=== PATIENT | male | born 1935 | race American Indian/Alaskan Native ===

== ENCOUNTER 2018-06-13 20:53 | Inpatient (IN) | payer MEDICARE, MEDICAID ==
[2018-06-13] MEDS ORDERED: Lactated Ringers 1,000 ML IV ONE (21:31)
[2018-06-13 21:43] LABS: ANION GAP 19.8; CHLORIDE,CL 93 mmol/L (101-111); SODIUM,NA 128 mmol/L (135-145)
--- NOTE | 2018-06-13 21:59 | EDM.PDOC ---
ED HPI GENERAL MEDICAL PROBLEM - General Chief Complaint: Fever Stated Complaint: AMBULANCE Time Seen by Provider: 06/13/18 21:15 Source of Information: Reports: Patient, EMS, EMS Notes Reviewed, RN, RN Notes Reviewed History Limitations: Reports: No Limitations - History of Present Illness INITIAL COMMENTS - FREE TEXT/NARRATIVE: Pt to ER with c/o weakness, decreased appetite for the past 4 days. He states he lives at home alone and has not been able to eat much or do much. He states he has had increased frequency in urination, not urinating much in volume. Denies burning with urination. Patient is unsure if he has had a fever. Denies any more cough than usual, as he admits to smoking a pack a day. Patient denies chest pain, SOB, body aches, N/V/D. He states he hasn't had a BM in a few days due to not eating much. Patient denies health problems. Onset: Gradual Onset Date: 06/09/18 - Related Data Allergies Allergy/AdvReac Type Severity Reaction Status Date / Time No Known Allergies Allergy Verified 02/09/18 14:55 Home Meds: Home Meds Aspirin [Halfprin] 81 mg PO DAILY 02/09/18 [History] Past Medical History - Past Health History Medical/Surgical History: Denies Medical/Surgical History HEENT History: Reports: Impaired Vision Cardiovascular History: Reports: CAD Respiratory History: Reports: Other (See Below) Dermatologic History: Reports: Cellulitis - Infectious Disease History Infectious Disease History: Reports: Chicken Pox, Measles, Mumps - Past Surgical History HEENT Surgical History: Reports: Adenoidectomy, Tonsillectomy, Other (See Below) Other HEENT Surgeries/Procedures: corneal transplant left eye Social & Family History - Family History Family Medical History: Noncontributory - Tobacco Use Smoking Status *Q: Current Every Day Smoker Years of Tobacco use: 70 Packs/Tins Daily: 1 Used Tobacco, but Quit: No Second Hand Smoke Exposure: No - Caffeine Use Caffeine Use: Reports: Coffee - Recreational Drug Use Recreational Drug Use: No - Living Situation & Occupation Living situation: Reports: with Family Occupation: Retired ED ROS GENERAL - Review of Systems Review Of Systems: ROS reveals no pertinent complaints other than HPI. ED EXAM, GENERAL - Physical Exam Exam: See Below Exam Limited By: No Limitations General Appearance: Alert, WD/WN, No Apparent Distress Eye Exam: Bilateral Eye: EOMI, Normal Inspection Ears: Normal External Exam, Hearing Grossly Normal Nose: Normal Inspection Throat/Mouth: Normal Oropharynx, Normal Voice, No Airway Compromise, Other ( tongue and mucous membranes extremely dry, white) Head: Atraumatic, Normocephalic Neck: Normal Inspection, Supple, Non-Tender, Full Range of Motion Respiratory/Chest: No Respiratory Distress, No Accessory Muscle Use, Chest Non- Tender, Decreased Breath Sounds, Crackles (bases bilaterally) Cardiovascular: Normal Peripheral Pulses, Regular Rate, Rhythm, No Edema, No Gallop, No JVD, No Murmur, No Rub Peripheral Pulses: 2+: Radial (L), Radial (R) GI/Abdominal: Normal Bowel Sounds, Soft, Non-Tender (Male) Exam: Deferred Rectal (Males) Exam: Deferred Back Exam: Normal Inspection, Decreased Range of Motion Extremities: Normal Inspection, Non-Tender, No Pedal Edema, Normal Capillary Refill, Limited Range of Motion Neurological: Alert, Oriented, CN II-XII Intact, Normal Cognition, Normal Reflexes, No Motor/Sensory Deficits Psychiatric: Normal Affect, Normal Mood Skin Exam: Warm, Dry, Intact, Normal Color, No Rash Lymphatic: No Adenopathy EKG INTERPRETATION EKG Date: 06/13/18 Time: 21:43 Rhythm: NSR Rate (Beats/Min): 75 QRS: RBBB Comparison: NA - No Prior EKG Course - Vital Signs Last Recorded V/S: Last Vital Signs Temp 101.1 F H 06/13/18 20:54 Pulse 6 L 06/13/18 20:54 Resp 16 06/13/18 20:54 BP 145/58 H 06/13/18 20:54 Pulse Ox 93 L 06/13/18 20:54 - Orders/Labs/Meds Orders: Active Orders 24 hr Category Date Time Status EKG Documentation Completion [RC] STAT Care 06/13/18 21:29 Active Chest 1V Frontal [CR] Stat Exams 06/13/18 21:29 Taken CULTURE BLOOD [BC] Stat Lab 06/13/18 21:14 Received CULTURE BLOOD [BC] Stat Lab 06/13/18 21:14 Received CULTURE URINE [RM] Stat Lab 06/13/18 20:45 Received Sodium Chloride 0.9% [Normal Saline] 1,000 ml Med 06/13/18 22:21 Active IV .BOLUS cefTRIAXone [Rocephin] 1,000 mg Med 06/13/18 22:23 Active Sodium Chloride 0.9% [Normal Saline] 100 ml IV ONETIME Blood Culture x2 Reflex Set [OM.PC] Stat Oth 06/13/18 20:58 Ordered Medication Orders Sodium Chloride (Normal Saline) 1,000 mls @ 999 mls/hr IV .BOLUS ONE Stop: 06/13/18 23:21 Ceftriaxone Sodium 1,000 mg/ (Sodium Chloride) 100 mls @ 200 mls/hr IV ONETIME ONE Stop: 06/13/18 22:52 Labs: Laboratory Tests 06/13/18 06/13/18 06/13/18 Range/Units 20:45 21:14 21:14 WBC 19.8 H (5.0-10.0) 10^3/uL RBC 5.20 (4.6-6.2) 10^6/uL Hgb 15.3 (14.0-18.0) g/dL Hct 45.4 (40.0-54.0) % MCV 87.3 (80-100) fL MCH 29.4 (27.0-34.0) pg MCHC 33.7 (33.0-35.0) g/dL Plt Count 156 D (150-450) 10^3/uL Neut % (Auto) 85.8 H (42.2-75.2) % Lymph % (Auto) 4.9 L (20.5-50.1) % [place] % (Auto) 9.0 H (2-8) % Eos % (Auto) 0.1 L (1.0-3.0) % Baso % (Auto) 0.2 (0.0-1.0) % Add Manual Diff Yes Neutrophils % (Manual) 85 H (42-75) % Band Neutrophils % 2 % Lymphocytes % (Manual) 5 L (20-50) % Monocytes % (Manual) 8 (2-8) % Sodium 128 L (135-145) mmol/L Potassium 3.8 (3.6-5.0) mmol/L Chloride 93 L (101-111) mmol/L Carbon Dioxide 19.0 L (21.0-31.0) mmol/L Anion Gap 19.8 BUN 34 H (7-18) mg/dL Creatinine 1.5 H (0.6-1.3) mg/dL Est Cr Clr Drug Dosing 33.08 mL/min Estimated GFR (MDRD) 45 BUN/Creatinine Ratio 22.66 Glucose 124 H (74-105) mg/dL Lactic Acid (0.5-2.2) mmol/L Calcium 8.2 L (8.4-10.2) mg/dl Total Bilirubin 1.8 H (0.2-1.0) mg/dL AST 44 H (10-42) IU/L ALT 46 (10-60) IU/L Alkaline Phosphatase 102 (42-121) IU/L Troponin I < 0.02 (0.00-0.02) ng/ml Total Protein 7.3 (6.7-8.2) g/dl Albumin 3.2 (3.2-5.5) g/dl Globulin 4.1 Albumin/Globulin Ratio 0.78 Urine Color Dark yellow (YELLOW) Urine Appearance Turbid (CLEAR) Urine pH 5.5 (5.0-9.0) Ur Specific [place] 1.015 (1.005-1.030) Urine Protein 30 H (NEGATIVE) Urine Glucose (UA) Negative (NEGATIVE) Urine Ketones Trace H (NEGATIVE) Urine Occult Blood Large H (NEGATIVE) Urine Nitrite Negative (NEGATIVE) Urine Bilirubin Small H (NEGATIVE) Urine Urobilinogen 4.0 H (0.2-1.0) mg/dL Ur Leukocyte Esterase Moderate H (NEGATIVE) Urine RBC 5-10 H /HPF Urine WBC >100 H (0-5/HPF) /HPF Ur Epithelial Cells Few /HPF Urine Bacteria Many H (0-FEW/HPF) /HPF 06/13/18 Range/Units 21:14 WBC (5.0-10.0) 10^3/uL RBC (4.6-6.2) 10^6/uL Hgb (14.0-18.0) g/dL Hct (40.0-54.0) % MCV (80-100) fL MCH (27.0-34.0) pg MCHC (33.0-35.0) g/dL Plt Count (150-450) 10^3/uL Neut % (Auto) (42.2-75.2) % Lymph % (Auto) (20.5-50.1) % Ashley % (Auto) (2-8) % Eos % (Auto) (1.0-3.0) % Baso % (Auto) (0.0-1.0) % Add Manual Diff Neutrophils % (Manual) (42-75) % Band Neutrophils % % Lymphocytes % (Manual) (20-50) % Monocytes % (Manual) (2-8) % Sodium (135-145) mmol/L Potassium (3.6-5.0) mmol/L Chloride (101-111) mmol/L Carbon Dioxide (21.0-31.0) mmol/L Anion Gap BUN (7-18) mg/dL Creatinine (0.6-1.3) mg/dL Est Cr Clr Drug Dosing mL/min Estimated GFR (MDRD) BUN/Creatinine Ratio Glucose (74-105) mg/dL Lactic Acid 1.2 (0.5-2.2) mmol/L Calcium (8.4-10.2) mg/dl Total Bilirubin (0.2-1.0) mg/dL AST (10-42) IU/L ALT (10-60) IU/L Alkaline Phosphatase (42-121) IU/L Troponin I (0.00-0.02) ng/ml Total Protein (6.7-8.2) g/dl Albumin (3.2-5.5) g/dl Globulin Albumin/Globulin Ratio Urine Color (YELLOW) Urine Appearance (CLEAR) Urine pH (5.0-9.0) Ur Specific [place] (1.005-1.030) Urine Protein (NEGATIVE) Urine Glucose (UA) (NEGATIVE) Urine Ketones (NEGATIVE) Urine Occult Blood (NEGATIVE) Urine Nitrite (NEGATIVE) Urine Bilirubin (NEGATIVE) Urine Urobilinogen (0.2-1.0) mg/dL Ur Leukocyte Esterase (NEGATIVE) Urine RBC /HPF Urine WBC (0-5/HPF) /HPF Ur Epithelial Cells /HPF Urine Bacteria (0-FEW/HPF) /HPF Meds: Medications Generic Name Dose Route Start Last Admin Trade Name Freq PRN Reason Stop Dose Admin Sodium Chloride 1,000 mls @ 999 mls/hr 06/13/18 22:21 Normal Saline IV 06/13/18 23:21 .BOLUS ONE Ceftriaxone Sodium 1,000 mg/ 100 mls @ 200 mls/hr 06/13/18 22:23 Sodium Chloride IV 06/13/18 22:52 ONETIME ONE Discontinued Medications Generic Name Dose Route Start Last Admin Trade Name Zenon PRN Reason Stop Dose Admin Lactated Ringer's 1,000 mls @ 999 mls/hr 06/13/18 21:31 06/13/18 22:02 Ringers, Lactated IV 06/13/18 22:31 999 mls/hr .BOLUS ONE Administration - Radiology Interpretation Free Text/Narrative:: Chest xray; See rad report - Re-Assessments/Exams Free Text/Narrative Re-Assessment/Exam: 06/13/18 22:25 Discussed patient case with Dr. Jackson who agreed to accept the patient for admission Departure - Departure Time of Disposition: 22:26 Disposition: Admitted As Inpatient 64 Condition: Poor Clinical Impression: Dehydration UTI (urinary tract infection) Qualifiers: Urinary tract infection type: site unspecified Hematuria presence: with hematuria Qualified Code(s): N39.0 - Urinary tract infection, site not specified ; R31.9 - Hematuria, unspecified - Discharge Information Forms: ED Department Discharge - My Orders Last 24 Hours: My Active Orders 06/13/18 20:45 CULTURE URINE [RM] Stat 06/13/18 20:58 Blood Culture x2 Reflex Set [OM.PC] Stat 06/13/18 21:14 CULTURE BLOOD [BC] Stat CULTURE BLOOD [BC] Stat 06/13/18 21:29 EKG Documentation Completion [RC] STAT Chest 1V Frontal [CR] Stat 06/13/18 22:21 Sodium Chloride 0.9% [Normal Saline] 1,000 ml IV .BOLUS 06/13/18 22:23 cefTRIAXone [Rocephin] 1,000 mg Sodium Chloride 0.9% [Normal Saline] 100 ml IV ONETIME - Assessment/Plan Last 24 Hours: My Active Orders 06/13/18 20:45 CULTURE URINE [RM] Stat 06/13/18 20:58 Blood Culture x2 Reflex Set [OM.PC] Stat 06/13/18 21:14 CULTURE BLOOD [BC] Stat CULTURE BLOOD [BC] Stat 06/13/18 21:29 EKG Documentation Completion [RC] STAT Chest 1V Frontal [CR] Stat 06/13/18 22:21 Sodium Chloride 0.9% [Normal Saline] 1,000 ml IV .BOLUS 06/13/18 22:23 cefTRIAXone [Rocephin] 1,000 mg Sodium Chloride 0.9% [Normal Saline] 100 ml IV ONETIME
[2018-06-13] MEDS ORDERED: Sodium Chloride 0.9% 1,000 ML IV ONE (22:21)
[2018-06-13] MEDS ORDERED: Ibuprofen 400 MG Tab PO PRN (23:25)
[2018-06-13] MEDS ORDERED: Acetaminophen 325 MG Tab PO PRN (23:25)
[2018-06-13] MEDS ORDERED: oxyCODONE 5 MG Tab PO PRN (23:25)
[2018-06-13] MEDS ORDERED: Zolpidem 5 MG Tab PO PRN (23:25)
[2018-06-13] MEDS ORDERED: Ondansetron 4 MG/2 ML SDV IVPUSH PRN (23:25)
--- NOTE | 2018-06-13 23:33 | PCM.HP ---
H&P History of Present Illness - General Date of Service: 06/13/18 Admit Problem/Dx: Admission Diagnosis/Problem Admission Diagnosis/Problem UTI, Urinary tract infectious disease Source of Information: Patient History Limitations: Reports: No Limitations - History of Present Illness Initial Comments - Free Text/Narative: 82-year-old gentleman who lives alone. He is only taking aspirin. He has been feeling very weak, increasingly over the past for 5 days. He was eating very little, drinking little water Denies fever Appear to have urinary frequency. No chest pain, no shortness of breath, no cough Chronic smoker - Related Data Allergies/Adverse Reactions: Allergies Allergy/AdvReac Type Severity Reaction Status Date / Time No Known Allergies Allergy Verified 02/09/18 14:55 Home Medications: Home Meds Aspirin [Halfprin] 81 mg PO DAILY 02/09/18 [History] Past Medical History - Past Health History Medical/Surgical History: Denies Medical/Surgical History HEENT History: Reports: Impaired Vision Cardiovascular History: Reports: CAD Respiratory History: Reports: Other (See Below) Dermatologic History: Reports: Cellulitis - Infectious Disease History Infectious Disease History: Reports: Chicken Pox, Measles, Mumps - Past Surgical History HEENT Surgical History: Reports: Adenoidectomy, Tonsillectomy, Other (See Below) Other HEENT Surgeries/Procedures: corneal transplant left eye Social & Family History - Family History Family Medical History: Noncontributory - Tobacco Use Smoking Status *Q: Current Every Day Smoker Years of Tobacco use: 70 Packs/Tins Daily: 1 Used Tobacco, but Quit: No Second Hand Smoke Exposure: No - Caffeine Use Caffeine Use: Reports: Coffee - Recreational Drug Use Recreational Drug Use: No - Living Situation & Occupation Living situation: Reports: with Family Occupation: Retired H&P Review of Systems - Review of Systems: Review Of Systems: See Below General: Denies: Fever Pulmonary: Denies: Shortness of Breath Cardiovascular: Denies: Chest Pain, Edema Gastrointestinal: Denies: Abdominal Pain Genitourinary: Reports: Urgency. Denies: Burning, Hematuria, Retention Psychiatric: Denies: Confusion Neurological: Reports: Weakness Exam - Exam Exam: See Below - Vital Signs Vital Signs: Last Vital Signs Temp 37.2 C 06/13/18 22:33 Pulse 72 06/13/18 22:33 Resp 16 06/13/18 22:33 BP 136/55 L 02/13/19 22:33 Pulse Ox 98 06/13/18 22:33 Weight: 76.476 kg - Exam General: Alert, Oriented HEENT: Other (Dry mouth) Neck: Supple Lungs: Clear to Auscultation Cardiovascular: Regular Rate, Regular Rhythm GI/Abdominal Exam: Normal Bowel Sounds, Soft, Non-Tender Extremities: No Pedal Edema Skin: Warm, Dry Neurological: Normal Speech Neuro Extensive - Mental Status: Alert, Oriented x3, Normal Mood/Affect, Normal Cognition - Patient Data Lab Results Last 24 hrs: Laboratory Results - last 24 hr 06/13/18 06/13/18 06/13/18 Range/Units 20:45 21:14 21:14 WBC 19.8 H (5.0-10.0) 10^3/uL RBC 5.20 (4.6-6.2) 10^6/uL Hgb 15.3 (14.0-18.0) g/dL Hct 45.4 (40.0-54.0) % MCV 87.3 (80-100) fL MCH 29.4 (27.0-34.0) pg MCHC 33.7 (33.0-35.0) g/dL Plt Count 156 D (150-450) 10^3/uL Neut % (Auto) 85.8 H (42.2-75.2) % Lymph % (Auto) 4.9 L (20.5-50.1) % [place] % (Auto) 9.0 H (2-8) % Eos % (Auto) 0.1 L (1.0-3.0) % Baso % (Auto) 0.2 (0.0-1.0) % Add Manual Diff Yes Neutrophils % (Manual) 85 H (42-75) % Band Neutrophils % 2 % Lymphocytes % (Manual) 5 L (20-50) % Monocytes % (Manual) 8 (2-8) % Sodium 128 L (135-145) mmol/L Potassium 3.8 (3.6-5.0) mmol/L Chloride 93 L (101-111) mmol/L Carbon Dioxide 19.0 L (21.0-31.0) mmol/L Anion Gap 19.8 BUN 34 H (7-18) mg/dL Creatinine 1.5 H (0.6-1.3) mg/dL Est Cr Clr Drug Dosing 33.08 mL/min Estimated GFR (MDRD) 45 BUN/Creatinine Ratio 22.66 Glucose 124 H (74-105) mg/dL Lactic Acid (0.5-2.2) mmol/L Calcium 8.2 L (8.4-10.2) mg/dl Total Bilirubin 1.8 H (0.2-1.0) mg/dL AST 44 H (10-42) IU/L ALT 46 (10-60) IU/L Alkaline Phosphatase 102 (42-121) IU/L Troponin I < 0.02 (0.00-0.02) ng/ml Total Protein 7.3 (6.7-8.2) g/dl Albumin 3.2 (3.2-5.5) g/dl Globulin 4.1 Albumin/Globulin Ratio 0.78 Urine Color Dark yellow (YELLOW) Urine Appearance Turbid (CLEAR) Urine pH 5.5 (5.0-9.0) Ur Specific [place] 1.015 (1.005-1.030) Urine Protein 30 H (NEGATIVE) Urine Glucose (UA) Negative (NEGATIVE) Urine Ketones Trace H (NEGATIVE) Urine Occult Blood Large H (NEGATIVE) Urine Nitrite Negative (NEGATIVE) Urine Bilirubin Small H (NEGATIVE) Urine Urobilinogen 4.0 H (0.2-1.0) mg/dL Ur Leukocyte Esterase Moderate H (NEGATIVE) Urine RBC 5-10 H /HPF Urine WBC >100 H (0-5/HPF) /HPF Ur Epithelial Cells Few /HPF Urine Bacteria Many H (0-FEW/HPF) /HPF 06/13/18 Range/Units 21:14 WBC (5.0-10.0) 10^3/uL RBC (4.6-6.2) 10^6/uL Hgb (14.0-18.0) g/dL Hct (40.0-54.0) % MCV (80-100) fL MCH (27.0-34.0) pg MCHC (33.0-35.0) g/dL Plt Count (150-450) 10^3/uL Neut % (Auto) (42.2-75.2) % Lymph % (Auto) (20.5-50.1) % [place] % (Auto) (2-8) % Eos % (Auto) (1.0-3.0) % Baso % (Auto) (0.0-1.0) % Add Manual Diff Neutrophils % (Manual) (42-75) % Band Neutrophils % % Lymphocytes % (Manual) (20-50) % Monocytes % (Manual) (2-8) % Sodium (135-145) mmol/L Potassium (3.6-5.0) mmol/L Chloride (101-111) mmol/L Carbon Dioxide (21.0-31.0) mmol/L Anion Gap BUN (7-18) mg/dL Creatinine (0.6-1.3) mg/dL Est Cr Clr Drug Dosing mL/min Estimated GFR (MDRD) BUN/Creatinine Ratio Glucose (74-105) mg/dL Lactic Acid 1.2 (0.5-2.2) mmol/L Calcium (8.4-10.2) mg/dl Total Bilirubin (0.2-1.0) mg/dL AST (10-42) IU/L ALT (10-60) IU/L Alkaline Phosphatase (42-121) IU/L Troponin I (0.00-0.02) ng/ml Total Protein (6.7-8.2) g/dl Albumin (3.2-5.5) g/dl Globulin Albumin/Globulin Ratio Urine Color (YELLOW) Urine Appearance (CLEAR) Urine pH (5.0-9.0) Ur Specific [place] (1.005-1.030) Urine Protein (NEGATIVE) Urine Glucose (UA) (NEGATIVE) Urine Ketones (NEGATIVE) Urine Occult Blood (NEGATIVE) Urine Nitrite (NEGATIVE) Urine Bilirubin (NEGATIVE) Urine Urobilinogen (0.2-1.0) mg/dL Ur Leukocyte Esterase (NEGATIVE) Urine RBC /HPF Urine WBC (0-5/HPF) /HPF Ur Epithelial Cells /HPF Urine Bacteria (0-FEW/HPF) /HPF Result Diagrams: 06/13/18 21:14 06/13/18 21:14 - Problem List (1) Dehydration SNOMED Code(s): 56829290 ICD Code: E86.0 - DEHYDRATION Status: Acute Current Visit: No (2) Hyponatremia SNOMED Code(s): 84946199 ICD Code: E87.1 - HYPO-OSMOLALITY AND HYPONATREMIA Status: Acute Current Visit: No (3) UTI (urinary tract infection) SNOMED Code(s): 06325289 ICD Code: N39.0 - URINARY TRACT INFECTION, SITE NOT SPECIFIED Status: Acute Current Visit: No Qualifiers: Urinary tract infection type: site unspecified Hematuria presence: with hematuria Qualified Code(s): N39.0 - Urinary tract infection, site not specified; R31.9 - Hematuria, unspecified Problem List Initiated/Reviewed/Updated: Yes Orders Last 24hrs: Active Orders 24 hr Category Date Time Status Patient Status [ADT] Routine ADT 06/13/18 23:25 Ordered Antiembolic Devices [RC] PER UNIT ROUTINE Care 06/13/18 23:26 Ordered Oxygen Therapy [RC] PRN Care 06/13/18 23:25 Ordered Up With Assistance [RC] ASDIRECTED Care 06/13/18 23:25 Ordered VTE/DVT Education [RC] PER UNIT ROUTINE Care 06/13/18 23:25 Ordered Vital Signs [RC] Q4H Care 06/13/18 23:25 Ordered Regular Diet [DIET] Diet 06/13/18 Breakfast Ordered Chest 1V Frontal [CR] Stat Exams 06/13/18 21:29 Taken BASIC METABOLIC PANEL,BMP [CHEM] AM Lab 06/14/18 05:11 Ordered CBC WITH AUTO DIFF [HEME] AM Lab 06/14/18 05:11 Ordered CULTURE BLOOD [BC] Stat Lab 06/13/18 21:14 Received CULTURE BLOOD [BC] Stat Lab 06/13/18 21:14 Received CULTURE URINE [RM] Stat Lab 06/13/18 20:45 Received Acetaminophen [Tylenol] Med 06/13/18 23:25 Ordered 650 mg PO Q4H PRN Aspirin [Halfprin] Med 06/14/18 09:00 Ordered 81 mg PO DAILY Docusate Sodium [Colace] Med 06/14/18 09:00 Ordered 100 mg PO BID Docusate Sodium/Sennosides [Senna Plus] Med 06/13/18 23:25 Ordered 1 tab PO BEDTIME PRN Heparin Sodium Med 06/14/18 06:00 Ordered 5,000 units SUBCUT Q8HR Ibuprofen [Motrin] Med 06/13/18 23:25 Ordered 400 mg PO Q6H PRN Ondansetron [Zofran] Med 06/13/18 23:25 Ordered 4 mg IVPUSH Q4H PRN Sodium Chloride 0.9% with KCl 20 mEq @ 75 mL/Hr (1000 Med 06/13/18 23:30 Ordered mL) NS + KCl 20mEq/L [Normal Saline with 20 mEq KCl] 1,000 ml IV ASDIRECTED Zolpidem [Ambien] Med 06/13/18 23:25 Ordered 5 mg PO BEDTIME PRN cefTRIAXone [Rocephin] 1 gm Med 06/14/18 20:00 Ordered Sodium Chloride 0.9% [Normal Saline] 50 ml IV Q24H oxyCODONE Med 06/13/18 23:25 Ordered 5 mg PO Q4H PRN Antiembolic Hose [OM.PC] Per Unit Routine Oth 06/13/18 23:26 Ordered Blood Culture x2 Reflex Set [OM.PC] Stat Oth 06/13/18 20:58 Ordered Resuscitation Status Routine Resus Stat 06/13/18 23:25 Ordered Medication Orders Acetaminophen (Tylenol) 650 mg PO Q4H PRN PRN Reason: Pain (Mild 1-3)/fever Aspirin (Halfprin) 81 mg PO DAILY JULIA Docusate Sodium (Colace) 100 mg PO BID JULIA Heparin Sodium (Porcine) (Heparin Sodium) 5,000 units SUBCUT Q8HR JULIA Ceftriaxone Sodium 1 gm/ (Sodium Chloride) 50 mls @ 50 mls/hr IV Q24H JULIA Potassium Chloride/Sodium Chloride (Normal Saline With 20 Meq Kcl) 1,000 mls @ 75 mls/hr IV ASDIRECTED JULIA Ibuprofen (Motrin) 400 mg PO Q6H PRN PRN Reason: Pain (moderate 4-6) Ondansetron HCl (Zofran) 4 mg IVPUSH Q4H PRN PRN Reason: Nausea/Vomiting Oxycodone HCl (Oxycodone) 5 mg PO Q4H PRN PRN Reason: Pain (severe 7-10) Senna/Docusate Sodium (Senna Plus) 1 tab PO BEDTIME PRN PRN Reason: Constipation Zolpidem Tartrate (Ambien) 5 mg PO BEDTIME PRN PRN Reason: Sleep Assessment/Plan Comment:: 82-year-old gentleman who lives alone, taking aspirin only, no chronic medical diseases, presented with weakness Urinary tract infection Will obtain blood culture Obtain urine culture Empirically treat with Rocephin Follow cultures Dehydration, acute renal failure, hyponatremia Likely due to low oral intake Will start IV fluids Follow electrolytes Follow renal function test DVT prophylaxis with subcutaneous heparin
[2018-06-14] MEDS: NS + KCl 20mEq/L 1,000 ML IV SCH ×2 (01:04→15:16)
[2018-06-14] MEDS: Heparin Sodium 5,000 Units/ML Vial SUBCUT SCH ×3 (06:21→21:58)
[2018-06-14 06:37] LABS: ANION GAP 15.8
[2018-06-14] MEDS: Aspirin 81 MG Tab.EC PO SCH (09:32)
[2018-06-14] MEDS: Docusate Sodium 100 MG Cap PO SCH ×2 (09:32→21:11)
--- NOTE | 2018-06-14 11:34 | PCM.PN ---
- General Info Date of Service: 06/14/18 Admission Dx/Problem (Free Text): Admission Diagnosis/Problem Admission Diagnosis/Problem UTI, Urinary tract infectious disease Subjective Update: feeling better has been tolerating IVF no associated sob, no cp - Review of Systems General: Reports: Weakness Pulmonary: Denies: Shortness of Breath Cardiovascular: Denies: Chest Pain Gastrointestinal: Denies: Abdominal Pain Neurological: Denies: Confusion - Patient Data Vitals - Most Recent: Last Vital Signs Temp 36.4 C 06/14/18 08:00 Pulse 73 06/14/18 08:00 Resp 20 06/14/18 08:00 BP 140/49 L 06/14/18 08:00 Pulse Ox 96 06/14/18 08:00 Weight - Most Recent: 76.476 kg I&O - Last 24 Hours: Intake & Output 06/13/18 06/14/18 06/14/18 22:59 06:59 14:59 Intake Total 1600 320 Output Total 350 Balance 1250 320 Lab Results Last 24 Hours: Laboratory Results - last 24 hr 06/13/18 06/13/18 06/13/18 Range/Units 20:45 21:14 21:14 WBC 19.8 H (5.0-10.0) 10^3/uL RBC 5.20 (4.6-6.2) 10^6/uL Hgb 15.3 (14.0-18.0) g/dL Hct 45.4 (40.0-54.0) % MCV 87.3 (80-100) fL MCH 29.4 (27.0-34.0) pg MCHC 33.7 (33.0-35.0) g/dL Plt Count 156 D (150-450) 10^3/uL Neut % (Auto) 85.8 H (42.2-75.2) % Lymph % (Auto) 4.9 L (20.5-50.1) % Wise % (Auto) 9.0 H (2-8) % Eos % (Auto) 0.1 L (1.0-3.0) % Baso % (Auto) 0.2 (0.0-1.0) % Add Manual Diff Yes Neutrophils % (Manual) 85 H (42-75) % Band Neutrophils % 2 % Lymphocytes % (Manual) 5 L (20-50) % Monocytes % (Manual) 8 (2-8) % Sodium 128 L (135-145) mmol/L Potassium 3.8 (3.6-5.0) mmol/L Chloride 93 L (101-111) mmol/L Carbon Dioxide 19.0 L (21.0-31.0) mmol/L Anion Gap 19.8 BUN 34 H (7-18) mg/dL Creatinine 1.5 H (0.6-1.3) mg/dL Est Cr Clr Drug Dosing 33.08 mL/min Estimated GFR (MDRD) 45 BUN/Creatinine Ratio 22.66 Glucose 124 H (74-105) mg/dL Lactic Acid (0.5-2.2) mmol/L Calcium 8.2 L (8.4-10.2) mg/dl Total Bilirubin 1.8 H (0.2-1.0) mg/dL AST 44 H (10-42) IU/L ALT 46 (10-60) IU/L Alkaline Phosphatase 102 (42-121) IU/L Troponin I < 0.02 (0.00-0.02) ng/ml Total Protein 7.3 (6.7-8.2) g/dl Albumin 3.2 (3.2-5.5) g/dl Globulin 4.1 Albumin/Globulin Ratio 0.78 Urine Color Dark yellow (YELLOW) Urine Appearance Turbid (CLEAR) Urine pH 5.5 (5.0-9.0) Ur Specific [place] 1.015 (1.005-1.030) Urine Protein 30 H (NEGATIVE) Urine Glucose (UA) Negative (NEGATIVE) Urine Ketones Trace H (NEGATIVE) Urine Occult Blood Large H (NEGATIVE) Urine Nitrite Negative (NEGATIVE) Urine Bilirubin Small H (NEGATIVE) Urine Urobilinogen 4.0 H (0.2-1.0) mg/dL Ur Leukocyte Esterase Moderate H (NEGATIVE) Urine RBC 5-10 H /HPF Urine WBC >100 H (0-5/HPF) /HPF Ur Epithelial Cells Few /HPF Urine Bacteria Many H (0-FEW/HPF) /HPF 06/13/18 06/14/18 06/14/18 Range/Units 21:14 06:05 06:05 WBC 15.6 H (5.0-10.0) 10^3/uL RBC 4.54 L (4.6-6.2) 10^6/uL Hgb 13.4 L D (14.0-18.0) g/dL Hct 39.8 L (40.0-54.0) % MCV 87.7 (80-100) fL MCH 29.5 (27.0-34.0) pg MCHC 33.7 (33.0-35.0) g/dL Plt Count 135 L (150-450) 10^3/uL Neut % (Auto) 85.0 H (42.2-75.2) % Lymph % (Auto) 5.8 L (20.5-50.1) % Wise % (Auto) 9.0 H (2-8) % Eos % (Auto) 0.1 L (1.0-3.0) % Baso % (Auto) 0.1 (0.0-1.0) % Add Manual Diff Neutrophils % (Manual) (42-75) % Band Neutrophils % % Lymphocytes % (Manual) (20-50) % Monocytes % (Manual) (2-8) % Sodium 128 L (135-145) mmol/L Potassium 3.8 (3.6-5.0) mmol/L Chloride 97 L (101-111) mmol/L Carbon Dioxide 19.0 L (21.0-31.0) mmol/L Anion Gap 15.8 BUN 29 H (7-18) mg/dL Creatinine 1.2 (0.6-1.3) mg/dL Est Cr Clr Drug Dosing 41.35 mL/min Estimated GFR (MDRD) 58 BUN/Creatinine Ratio Glucose 103 (74-105) mg/dL Lactic Acid 1.2 (0.5-2.2) mmol/L Calcium 7.5 L (8.4-10.2) mg/dl Total Bilirubin (0.2-1.0) mg/dL AST (10-42) IU/L ALT (10-60) IU/L Alkaline Phosphatase (42-121) IU/L Troponin I (0.00-0.02) ng/ml Total Protein (6.7-8.2) g/dl Albumin (3.2-5.5) g/dl Globulin Albumin/Globulin Ratio Urine Color (YELLOW) Urine Appearance (CLEAR) Urine pH (5.0-9.0) Ur Specific [place] (1.005-1.030) Urine Protein (NEGATIVE) Urine Glucose (UA) (NEGATIVE) Urine Ketones (NEGATIVE) Urine Occult Blood (NEGATIVE) Urine Nitrite (NEGATIVE) Urine Bilirubin (NEGATIVE) Urine Urobilinogen (0.2-1.0) mg/dL Ur Leukocyte Esterase (NEGATIVE) Urine RBC /HPF Urine WBC (0-5/HPF) /HPF Ur Epithelial Cells /HPF Urine Bacteria (0-FEW/HPF) /HPF [place] Results Last 24 Hours: Microbiology 06/13/18 21:14 Anaerobic Blood Culture - Preliminary Blood - Venous - Lab Draw 06/13/18 21:14 Anaerobic Blood Culture - Preliminary Blood - Venous 06/13/18 20:45 Urine Culture - Preliminary Urine, Voided Med Orders - Current: Current Medications Acetaminophen (Tylenol) 650 mg PO Q4H PRN PRN Reason: Pain (Mild 1-3)/fever Aspirin (Halfprin) 81 mg PO DAILY [facility] Last Admin: 06/14/18 09:32 Dose: 81 mg Docusate Sodium (Colace) 100 mg PO BID [facility] Last Admin: 06/14/18 09:32 Dose: 100 mg Heparin Sodium (Porcine) (Heparin Sodium) 5,000 units SUBCUT Q8HR [facility] Last Admin: 06/14/18 06:21 Dose: 5,000 units Ceftriaxone Sodium 1 gm/ (Sodium Chloride) 50 mls @ 50 mls/hr IV Q24H [facility] Potassium Chloride/Sodium Chloride (Normal Saline With 20 Meq Kcl) 1,000 mls @ 75 mls/hr IV ASDIRECTED [facility] Last Admin: 06/14/18 01:04 Dose: 75 mls/hr Ibuprofen (Motrin) 400 mg PO Q6H PRN PRN Reason: Pain (moderate 4-6) Ondansetron HCl (Zofran) 4 mg IVPUSH Q4H PRN PRN Reason: Nausea/Vomiting Oxycodone HCl (Oxycodone) 5 mg PO Q4H PRN PRN Reason: Pain (severe 7-10) Senna/Docusate Sodium (Senna Plus) 1 tab PO BEDTIME PRN PRN Reason: Constipation Zolpidem Tartrate (Ambien) 5 mg PO BEDTIME PRN PRN Reason: Sleep Discontinued Medications Lactated Ringer's (Ringers, Lactated) 1,000 mls @ 999 mls/hr IV .BOLUS ONE Stop: 06/13/18 22:31 Last Admin: 06/13/18 22:02 Dose: 999 mls/hr Sodium Chloride (Normal Saline) 1,000 mls @ 999 mls/hr IV .BOLUS ONE Stop: 06/13/18 23:21 Last Admin: 06/13/18 23:58 Dose: 999 mls/hr Ceftriaxone Sodium 1,000 mg/ (Sodium Chloride) 100 mls @ 200 mls/hr IV ONETIME ONE Stop: 06/13/18 22:52 Last Admin: 06/13/18 23:58 Dose: 200 mls/hr - Exam Quality Assessment: No: Supplemental Oxygen General: Alert, Oriented HEENT: Other (mouth dry) Neck: Supple Lungs: Clear to Auscultation, Normal Respiratory Effort Cardiovascular: Regular Rate, Regular Rhythm GI/Abdominal Exam: Normal Bowel Sounds, Soft, Non-Tender Extremities: No Pedal Edema - Problem List & Annotations (1) Dehydration SNOMED Code(s): 17046601 Code(s): E86.0 - DEHYDRATION Status: Acute Current Visit: No (2) Hyponatremia SNOMED Code(s): 92741370 Code(s): E87.1 - HYPO-OSMOLALITY AND HYPONATREMIA Status: Acute Current Visit: No (3) UTI (urinary tract infection) SNOMED Code(s): 55407659 Code(s): N39.0 - URINARY TRACT INFECTION, SITE NOT SPECIFIED Status: Acute Current Visit: No Qualifiers: Urinary tract infection type: site unspecified Hematuria presence: with hematuria Qualified Code(s): N39.0 - Urinary tract infection, site not specified; R31.9 - Hematuria, unspecified (4) Sepsis SNOMED Code(s): 86530314 Code(s): A41.9 - SEPSIS, UNSPECIFIED ORGANISM Status: Acute Current Visit : Yes - Problem List Review Problem List Initiated/Reviewed/Updated: Yes - My Orders Last 24 Hours: My Active Orders 06/13/18 23:25 Patient Status [ADT] Routine Oxygen Therapy [RC] PRN Up With Assistance [RC] ASDIRECTED VTE/DVT Education [RC] PER UNIT ROUTINE Vital Signs [RC] 04,08,12,16,20,00 Acetaminophen [Tylenol] 650 mg PO Q4H PRN Docusate Sodium/Sennosides [Senna Plus] 1 tab PO BEDTIME PRN Ibuprofen [Motrin] 400 mg PO Q6H PRN Ondansetron [Zofran] 4 mg IVPUSH Q4H PRN Zolpidem [Ambien] 5 mg PO BEDTIME PRN oxyCODONE 5 mg PO Q4H PRN Resuscitation Status Routine 06/13/18 23:26 Antiembolic Devices [RC] 08,20 Antiembolic Hose [OM.PC] Per Unit Routine 06/13/18 23:30 NS + KCl 20mEq/L [Normal Saline with 20 mEq KCl] 1,000 ml IV ASDIRECTED 06/14/18 06:00 Heparin Sodium 5,000 units SUBCUT Q8HR 06/14/18 09:00 Aspirin [Halfprin] 81 mg PO DAILY Docusate Sodium [Colace] 100 mg PO BID 06/14/18 11:30 Echo Comp wo Cont [US] Routine 06/14/18 20:00 cefTRIAXone [Rocephin] 1 gm Sodium Chloride 0.9% [Normal Saline] 50 ml IV Q24H 06/15/18 05:15 BASIC METABOLIC PANEL,BMP [CHEM] AM CBC WITH AUTO DIFF [HEME] AM - Plan Plan:: 82-year-old gentleman who lives alone, taking aspirin only, no chronic medical diseases, presented with weakness Urinary tract infection with sepsis BC: gram neg nora Ucx: gram neg nora obtain echo repeat bc tomorrow Empirically treat with Rocephin Follow cultures Dehydration, acute renal failure, hyponatremia Likely due to low oral intake improving cont IV fluids Follow electrolytes Follow renal function test DVT prophylaxis with subcutaneous heparin
[2018-06-14] MEDS: cefTRIAXone 1 GM in Sodium Chloride 0.9% 50 ML IV SCH (19:58)
[2018-06-15] MEDS: NS + KCl 20mEq/L 1,000 ML IV SCH (05:17)
[2018-06-15] MEDS: Heparin Sodium 5,000 Units/ML Vial SUBCUT SCH ×3 (05:19→21:40)
[2018-06-15 07:06] LABS: ANION GAP 13.9; CHLORIDE,CL 104 mmol/L (101-111); SODIUM,NA 133 mmol/L (135-145)
[2018-06-15] MEDS: Docusate Sodium 100 MG Cap PO SCH ×2 (09:03→21:27)
[2018-06-15] MEDS: Aspirin 81 MG Tab.EC PO SCH (09:03)
--- NOTE | 2018-06-15 10:38 | PCM.PN ---
- General Info Date of Service: 06/15/18 Subjective Update: feeling better has good uo while on IVF no associated sob, no cp Functional Status: Reports: Pain Controlled - Review of Systems General: Reports: Weakness. Denies: Fever Pulmonary: Denies: Shortness of Breath Cardiovascular: Denies: Chest Pain Gastrointestinal: Denies: Abdominal Pain Neurological: Denies: Confusion - Patient Data Vitals - Most Recent: Last Vital Signs Temp 36.2 C 06/15/18 08:00 Pulse 63 06/15/18 08:00 Resp 22 H 06/15/18 08:00 BP 125/52 L 06/15/18 08:00 Pulse Ox 93 L 06/15/18 08:00 Weight - Most Recent: 76.476 kg I&O - Last 24 Hours: Intake & Output 06/14/18 06/15/18 06/15/18 22:59 06:59 14:59 Intake Total 570 1397 200 Output Total 425 700 Balance 145 697 200 Lab Results Last 24 Hours: Laboratory Results - last 24 hr 06/15/18 06/15/18 Range/Units 06:00 06:00 WBC 12.0 H (5.0-10.0) 10^3/uL RBC 4.25 L (4.6-6.2) 10^6/uL Hgb 12.5 L (14.0-18.0) g/dL Hct 37.4 L (40.0-54.0) % MCV 88.0 (80-100) fL MCH 29.4 (27.0-34.0) pg MCHC 33.4 (33.0-35.0) g/dL Plt Count 148 L (150-450) 10^3/uL Neut % (Auto) 80.5 H (42.2-75.2) % Lymph % (Auto) 8.8 L (20.5-50.1) % [place] % (Auto) 10.1 H (2-8) % Eos % (Auto) 0.4 L (1.0-3.0) % Baso % (Auto) 0.2 (0.0-1.0) % Add Manual Diff Yes Neutrophils % (Manual) 79 H (42-75) % Lymphocytes % (Manual) 15 L (20-50) % Monocytes % (Manual) 6 (2-8) % Sodium 133 L (135-145) mmol/L Potassium 3.9 (3.6-5.0) mmol/L Chloride 104 (101-111) mmol/L Carbon Dioxide 19.0 L (21.0-31.0) mmol/L Anion Gap 13.9 BUN 25 H (7-18) mg/dL Creatinine 1.1 (0.6-1.3) mg/dL Est Cr Clr Drug Dosing 45.11 mL/min Estimated GFR (MDRD) > 60 Glucose 95 (74-105) mg/dL Calcium 7.5 L (8.4-10.2) mg/dl [place] Results Last 24 Hours: Microbiology 06/13/18 21:14 Aerobic Blood Culture - Preliminary Blood - Venous Anaerobic Blood Culture - Preliminary 06/13/18 21:14 Aerobic Blood Culture - Preliminary Blood - Venous - Lab Draw Anaerobic Blood Culture - Preliminary 06/13/18 20:45 Urine Culture - Final Urine, Voided Klebsiella Pneumoniae Med Orders - Current: Current Medications Acetaminophen (Tylenol) 650 mg PO Q4H PRN PRN Reason: Pain (Mild 1-3)/fever Aspirin (Halfprin) 81 mg PO DAILY [facility] Last Admin: 06/15/18 09:03 Dose: 81 mg Docusate Sodium (Colace) 100 mg PO BID [facility] Last Admin: 06/15/18 09:03 Dose: Not Given Heparin Sodium (Porcine) (Heparin Sodium) 5,000 units SUBCUT Q8HR [facility] Last Admin: 06/15/18 05:19 Dose: 5,000 units Ceftriaxone Sodium 1 gm/ (Sodium Chloride) 50 mls @ 50 mls/hr IV Q24H [facility] Last Admin: 06/14/18 19:58 Dose: 50 mls/hr Ibuprofen (Motrin) 400 mg PO Q6H PRN PRN Reason: Pain (moderate 4-6) Ondansetron HCl (Zofran) 4 mg IVPUSH Q4H PRN PRN Reason: Nausea/Vomiting Oxycodone HCl (Oxycodone) 5 mg PO Q4H PRN PRN Reason: Pain (severe 7-10) Senna/Docusate Sodium (Senna Plus) 1 tab PO BEDTIME PRN PRN Reason: Constipation Zolpidem Tartrate (Ambien) 5 mg PO BEDTIME PRN PRN Reason: Sleep Discontinued Medications Lactated Ringer's (Ringers, Lactated) 1,000 mls @ 999 mls/hr IV .BOLUS ONE Stop: 06/13/18 22:31 Last Admin: 06/13/18 22:02 Dose: 999 mls/hr Sodium Chloride (Normal Saline) 1,000 mls @ 999 mls/hr IV .BOLUS ONE Stop: 06/13/18 23:21 Last Admin: 06/13/18 23:58 Dose: 999 mls/hr Ceftriaxone Sodium 1,000 mg/ (Sodium Chloride) 100 mls @ 200 mls/hr IV ONETIME ONE Stop: 06/13/18 22:52 Last Admin: 06/13/18 23:58 Dose: 200 mls/hr Potassium Chloride/Sodium Chloride (Normal Saline With 20 Meq Kcl) 1,000 mls @ 75 mls/hr IV ASDIRECTED [facility] Last Admin: 06/15/18 05:17 Dose: 75 mls/hr - Exam General: Alert, Oriented Neck: Supple Lungs: Clear to Auscultation, Normal Respiratory Effort Cardiovascular: Regular Rate, Regular Rhythm Extremities: No Pedal Edema - Problem List & Annotations (1) Dehydration SNOMED Code(s): 35603149 Code(s): E86.0 - DEHYDRATION Status: Acute Current Visit: No (2) Hyponatremia SNOMED Code(s): 92638106 Code(s): E87.1 - HYPO-OSMOLALITY AND HYPONATREMIA Status: Acute Current Visit: No (3) UTI (urinary tract infection) SNOMED Code(s): 04194420 Code(s): N39.0 - URINARY TRACT INFECTION, SITE NOT SPECIFIED Status: Acute Current Visit: No Qualifiers: Urinary tract infection type: site unspecified Hematuria presence: with hematuria Qualified Code(s): N39.0 - Urinary tract infection, site not specified; R31.9 - Hematuria, unspecified (4) Sepsis SNOMED Code(s): 72482080 Code(s): A41.9 - SEPSIS, UNSPECIFIED ORGANISM Status: Acute Current Visit : Yes - Problem List Review Problem List Initiated/Reviewed/Updated: Yes - My Orders Last 24 Hours: My Active Orders 06/14/18 20:00 cefTRIAXone [Rocephin] 1 gm Sodium Chloride 0.9% [Normal Saline] 50 ml IV Q24H 06/15/18 10:35 CULTURE BLOOD [BC] Routine CULTURE BLOOD [BC] Routine Blood Culture x2 Reflex Set [OM.PC] Stat 06/16/18 05:15 BASIC METABOLIC PANEL,BMP [CHEM] AM CBC WITH AUTO DIFF [HEME] AM - Plan Plan:: 82-year-old gentleman who lives alone, taking aspirin only, no chronic medical diseases, presented with weakness Urinary tract infection with sepsis BC: gram neg nora Ucx: gram neg nora echo: pending repeat bc today Empirically treat with Rocephin - will need 2 weeks IV Abx Follow cultures Dehydration, acute renal failure, hyponatremia Likely due to low oral intake improved stop IV fluids Follow electrolytes Follow renal function test DVT prophylaxis with subcutaneous heparin
[2018-06-15] MEDS ORDERED: Sodium Chloride 0.9% 10 ML Syringe FLUSH PRN (12:21)
[2018-06-15] MEDS: cefTRIAXone 1 GM in Sodium Chloride 0.9% 50 ML IV SCH (19:46)
[2018-06-16] MEDS: Heparin Sodium 5,000 Units/ML Vial SUBCUT SCH ×3 (05:55→22:20)
[2018-06-16 06:40] LABS: ANION GAP 13.7; CHLORIDE,CL 104 mmol/L (101-111); SODIUM,NA 134 mmol/L (135-145)
[2018-06-16] MEDS: Docusate Sodium 100 MG Cap PO SCH ×2 (09:59→20:44)
[2018-06-16] MEDS: Aspirin 81 MG Tab.EC PO SCH (09:59)
--- NOTE | 2018-06-16 13:44 | PCM.PN ---
- General Info Date of Service: 06/16/18 Admission Dx/Problem (Free Text): Admission Diagnosis/Problem Admission Diagnosis/Problem UTI, Urinary tract infectious disease Subjective Update: Pt was seen in room, feeling better, no fever or chill, No nausea or Vomiting, appetite is good, No dysuria or Flank pain, No chest pain or shortness of breath Functional Status: Reports: Pain Controlled, Tolerating Diet, Ambulating, Urinating, New Symptoms - Review of Systems General: Reports: Appetite (good). Denies: Fever, Chills HEENT: Denies: Dysphasia, Eye Pain, Sinus Congestion, Sore Throat Pulmonary: Denies: Shortness of Breath, Cough, Sputum, Wheezing Cardiovascular: Denies: Chest Pain, Dyspnea on Exertion, Edema Gastrointestinal: Denies: Abdominal Pain, Difficulty Swallowing, Nausea, Vomiting Genitourinary: Denies: Dysuria, Frequency, Burning, Urgency, Flank Pain Musculoskeletal: Denies: Neck Pain, Arm Pain, Hand Pain, Joint Swelling Skin: Denies: Cyanosis, Jaundice, Bruising, Pruritis, Rash Neurological: Denies: Confusion, Paresthesia, Tremors Psychiatric: Denies: Confusion, Agitation - Patient Data Vitals - Most Recent: Last Vital Signs Temp 36.6 C 06/16/18 08:10 Pulse 62 06/16/18 08:10 Resp 20 06/16/18 08:10 BP 136/39 L 06/16/18 08:10 Pulse Ox 94 L 06/16/18 08:10 Weight - Most Recent: 76.476 kg I&O - Last 24 Hours: Intake & Output 06/15/18 06/16/18 06/16/18 22:59 06:59 14:59 Intake Total 540 Output Total 300 Balance 240 Lab Results Last 24 Hours: Laboratory Results - last 24 hr 06/16/18 06/16/18 Range/Units 05:40 05:40 WBC 9.8 (5.0-10.0) 10^3/uL RBC 4.25 L (4.6-6.2) 10^6/uL Hgb 12.5 L (14.0-18.0) g/dL Hct 37.7 L (40.0-54.0) % MCV 88.7 (80-100) fL MCH 29.4 (27.0-34.0) pg MCHC 33.2 (33.0-35.0) g/dL Plt Count 182 (150-450) 10^3/uL Neut % (Auto) 77.2 H (42.2-75.2) % Lymph % (Auto) 11.1 L (20.5-50.1) % [place] % (Auto) 10.1 H (2-8) % Eos % (Auto) 1.5 (1.0-3.0) % Baso % (Auto) 0.1 (0.0-1.0) % Sodium 134 L (135-145) mmol/L Potassium 3.7 (3.6-5.0) mmol/L Chloride 104 (101-111) mmol/L Carbon Dioxide 20.0 L (21.0-31.0) mmol/L Anion Gap 13.7 BUN 15 (7-18) mg/dL Creatinine 1.1 (0.6-1.3) mg/dL Est Cr Clr Drug Dosing 45.11 mL/min Estimated GFR (MDRD) > 60 Glucose 102 (74-105) mg/dL Calcium 7.6 L (8.4-10.2) mg/dl [place] Results Last 24 Hours: Microbiology 06/15/18 11:37 Aerobic Blood Culture - Preliminary Blood - Venous - Lab Draw NO GROWTH AFTER 1 DAY Anaerobic Blood Culture - Preliminary NO GROWTH AFTER 1 DAY 06/15/18 11:34 Aerobic Blood Culture - Preliminary Blood - Venous NO GROWTH AFTER 1 DAY Anaerobic Blood Culture - Preliminary NO GROWTH AFTER 1 DAY 06/13/18 21:14 Aerobic Blood Culture - Final Blood - Venous Anaerobic Blood Culture - Final 06/13/18 21:14 Aerobic Blood Culture - Final Blood - Venous - Lab Draw Anaerobic Blood Culture - Final Klebsiella Pneumoniae 06/13/18 20:45 Urine Culture - Final Urine, Voided Klebsiella Pneumoniae Med Orders - Current: Current Medications Acetaminophen (Tylenol) 650 mg PO Q4H PRN PRN Reason: Pain (Mild 1-3)/fever Aspirin (Halfprin) 81 mg PO DAILY [facility] Last Admin: 06/16/18 09:59 Dose: 81 mg Docusate Sodium (Colace) 100 mg PO BID [facility] Last Admin: 06/16/18 09:59 Dose: Not Given Heparin Sodium (Porcine) (Heparin Sodium) 5,000 units SUBCUT Q8HR [facility] Last Admin: 02/16/19 05:55 Dose: 5,000 units Ceftriaxone Sodium 1 gm/ (Sodium Chloride) 50 mls @ 50 mls/hr IV Q24H [facility] Last Admin: 06/15/18 19:46 Dose: 50 mls/hr Ondansetron HCl (Zofran) 4 mg IVPUSH Q4H PRN PRN Reason: Nausea/Vomiting Oxycodone HCl (Oxycodone) 5 mg PO Q4H PRN PRN Reason: Pain (severe 7-10) Senna/Docusate Sodium (Senna Plus) 1 tab PO BEDTIME PRN PRN Reason: Constipation Sodium Chloride (Saline Flush) 10 ml FLUSH ASDIRECTED PRN PRN Reason: Keep Vein Open Last Admin: 06/16/18 10:01 Dose: 10 ml Zolpidem Tartrate (Ambien) 5 mg PO BEDTIME PRN PRN Reason: Sleep Discontinued Medications Lactated Ringer's (Ringers, Lactated) 1,000 mls @ 999 mls/hr IV .BOLUS ONE Stop: 06/13/18 22:31 Last Admin: 06/13/18 22:02 Dose: 999 mls/hr Sodium Chloride (Normal Saline) 1,000 mls @ 999 mls/hr IV .BOLUS ONE Stop: 06/13/18 23:21 Last Admin: 06/13/18 23:58 Dose: 999 mls/hr Ceftriaxone Sodium 1,000 mg/ (Sodium Chloride) 100 mls @ 200 mls/hr IV ONETIME ONE Stop: 06/13/18 22:52 Last Admin: 06/13/18 23:58 Dose: 200 mls/hr Potassium Chloride/Sodium Chloride (Normal Saline With 20 Meq Kcl) 1,000 mls @ 75 mls/hr IV ASDIRECTED [facility] Last Admin: 06/15/18 05:17 Dose: 75 mls/hr - Exam Quality Assessment: DVT Prophylaxis. No: Supplemental Oxygen, Urine Catheter General: Alert, Oriented, Cooperative, No Acute Distress HEENT: Pupils Equal, Pupils Reactive, Mucous Membr. Moist/[place] Neck: Supple, No JVD, No Thyromegaly Lungs: Clear to Auscultation, Normal Respiratory Effort. No: Wheezing Cardiovascular: Regular Rate, Regular Rhythm, Murmurs GI/Abdominal Exam: Normal Bowel Sounds, Soft, Non-Tender, No Distention. No: Guarding, Rebound, Tender (Male) Exam: Deferred Back Exam: Normal Inspection, Full Range of Motion Extremities: Normal Inspection, No Pedal Edema Skin: Warm, Dry, Intact Neurological: No New Focal Deficit Psy/Mental Status: Alert, Normal Affect, Normal Mood - Problem List Review Problem List Initiated/Reviewed/Updated: Yes - Plan Plan:: This is a 82-year-old gentleman who lives alone, taking aspirin only, no chronic medical diseases, presented with weakness. His u/c was done and it was Klebsiella Pneumoniae and B/C also positive for Klebsiella ( Culture from ), repeat B/C from 06/15/18) showing no growth Impression and Plan: 1. Urinary tract infection with sepsis/Bacteremia BC: Klebsiella Pneumoniae ( from 06/13/18) Ucx: Klebsiella Pneumoniae ( From 06/13/18), repeat B/C from 06/15- showing no growth so far echo: pending - bacteria is susceptible to Rocephin and will continue , he will need 2 weeks IV Abx - Follow repeat cultures ( desi on 06/15) 2. Dehydration, acute renal failure, hyponatremia Likely due to low oral intake improved with IV fluids Follow renal function test in AM 3. DVT prophylaxis with subcutaneous heparin 4. GI prophylaxis: Continue protonix
[2018-06-16] MEDS: cefTRIAXone 1 GM in Sodium Chloride 0.9% 50 ML IV SCH (19:57)
[2018-06-16] MEDS: Sodium Bicarbonate 650 MG Tab PO SCH (20:44)
[2018-06-17] MEDS: Heparin Sodium 5,000 Units/ML Vial SUBCUT SCH ×2 (05:34→14:19)
[2018-06-17] MEDS ORDERED: Pantoprazole 40 MG Tab.CR PO SCH (06:00)
[2018-06-17] MEDS ORDERED: Omeprazole 20 MG Cap.CR PO SCH (06:00)
[2018-06-17 06:39] LABS: ANION GAP 12.6; CHLORIDE,CL 103 mmol/L (101-111); SODIUM,NA 132 mmol/L (135-145)
[2018-06-17] MEDS: Sodium Bicarbonate 650 MG Tab PO SCH (09:05)
[2018-06-17] MEDS: Aspirin 81 MG Tab.EC PO SCH (09:05)
[2018-06-17] MEDS: Docusate Sodium 100 MG Cap PO SCH (09:06)
--- NOTE | 2018-06-17 11:26 | PCM.PN ---
- General Info Date of Service: 06/17/18 Admission Dx/Problem (Free Text): Admission Diagnosis/Problem Admission Diagnosis/Problem UTI(Urinary tract infection) and weakness Subjective Update: Pt was seen in room, feeling better, no fever or chill, No nausea or Vomiting, appetite is good, No dysuria or Flank pain, No chest pain or shortness of breath , complain of having lose BM Functional Status: Reports: Pain Controlled, Tolerating Diet, Ambulating, Urinating - Review of Systems General: Reports: Appetite (good). Denies: Fever, Chills HEENT: Denies: Headaches, Sinus Congestion, Sore Throat, Visual Changes Pulmonary: Denies: Shortness of Breath, Cough, Sputum, Wheezing Cardiovascular: Denies: Chest Pain, Dyspnea on Exertion, Lightheadedness Gastrointestinal: Reports: Other (loose stool). Denies: Abdominal Pain, Nausea , Vomiting Genitourinary: Denies: Dysuria, Burning, Urgency, Incontinence Musculoskeletal: Denies: Neck Pain, Shoulder Pain, Back Pain, Leg Pain Skin: Denies: Jaundice, Bruising, Pruritis, Rash Neurological: Denies: Confusion, Tremors, Weakness Psychiatric: Denies: Confusion, Anxiety, Agitation - Patient Data Vitals - Most Recent: Last Vital Signs Temp 36.6 C 06/17/18 07:54 Pulse 64 06/17/18 07:54 Resp 20 06/17/18 07:54 BP 128/55 L 06/17/18 07:54 Pulse Ox 93 L 06/17/18 07:54 Weight - Most Recent: 76.476 kg I&O - Last 24 Hours: Intake & Output 06/16/18 06/17/18 06/17/18 22:59 06:59 14:59 Intake Total 1400 Output Total 300 Balance 1100 Lab Results Last 24 Hours: Laboratory Results - last 24 hr 06/17/18 Range/Units 06:10 Sodium 132 L (135-145) mmol/L Potassium 3.6 (3.6-5.0) mmol/L Chloride 103 (101-111) mmol/L Carbon Dioxide 20.0 L (21.0-31.0) mmol/L Anion Gap 12.6 BUN 13 (7-18) mg/dL Creatinine 1.0 (0.6-1.3) mg/dL Est Cr Clr Drug Dosing 49.62 mL/min Estimated GFR (MDRD) > 60 Glucose 101 (74-105) mg/dL Calcium 7.4 L (8.4-10.2) mg/dl [place] Results Last 24 Hours: Microbiology 06/15/18 11:37 Aerobic Blood Culture - Preliminary Blood - Venous - Lab Draw NO GROWTH AFTER 1 DAY Anaerobic Blood Culture - Preliminary NO GROWTH AFTER 1 DAY 06/15/18 11:34 Aerobic Blood Culture - Preliminary Blood - Venous NO GROWTH AFTER 1 DAY Anaerobic Blood Culture - Preliminary NO GROWTH AFTER 1 DAY 06/13/18 21:14 Aerobic Blood Culture - Final Blood - Venous Anaerobic Blood Culture - Final 06/13/18 21:14 Aerobic Blood Culture - Final Blood - Venous - Lab Draw Anaerobic Blood Culture - Final Klebsiella Pneumoniae Med Orders - Current: Current Medications Acetaminophen (Tylenol) 650 mg PO Q4H PRN PRN Reason: Pain (Mild 1-3)/fever Aspirin (Halfprin) 81 mg PO DAILY [facility] Last Admin: 06/17/18 09:05 Dose: 81 mg Heparin Sodium (Porcine) (Heparin Sodium) 5,000 units SUBCUT Q8HR [facility] Last Admin: 06/17/18 05:34 Dose: 5,000 units Ceftriaxone Sodium 1 gm/ (Sodium Chloride) 50 mls @ 50 mls/hr IV Q24H [facility] Last Admin: 06/16/18 19:57 Dose: 50 mls/hr Omeprazole (Omeprazole) 20 mg PO ACBREAKFAST [facility] Last Admin: 06/17/18 05:34 Dose: 20 mg Ondansetron HCl (Zofran) 4 mg IVPUSH Q4H PRN PRN Reason: Nausea/Vomiting Oxycodone HCl (Oxycodone) 5 mg PO Q4H PRN PRN Reason: Pain (severe 7-10) Senna/Docusate Sodium (Senna Plus) 1 tab PO BEDTIME PRN PRN Reason: Constipation Sodium Bicarbonate (Sodium Bicarbonate) 650 mg PO BID [facility] Last Admin: 06/17/18 09:05 Dose: 650 mg Sodium Chloride (Saline Flush) 10 ml FLUSH ASDIRECTED PRN PRN Reason: Keep Vein Open Last Admin: 06/16/18 10:01 Dose: 10 ml Zolpidem Tartrate (Ambien) 5 mg PO BEDTIME PRN PRN Reason: Sleep Discontinued Medications Docusate Sodium (Colace) 100 mg PO BID [facility] Last Admin: 06/17/18 09:06 Dose: Not Given Lactated Ringer's (Ringers, Lactated) 1,000 mls @ 999 mls/hr IV .BOLUS ONE Stop: 06/13/18 22:31 Last Admin: 06/13/18 22:02 Dose: 999 mls/hr Sodium Chloride (Normal Saline) 1,000 mls @ 999 mls/hr IV .BOLUS ONE Stop: 06/13/18 23:21 Last Admin: 06/13/18 23:58 Dose: 999 mls/hr Ceftriaxone Sodium 1,000 mg/ (Sodium Chloride) 100 mls @ 200 mls/hr IV ONETIME ONE Stop: 06/13/18 22:52 Last Admin: 06/13/18 23:58 Dose: 200 mls/hr Potassium Chloride/Sodium Chloride (Normal Saline With 20 Meq Kcl) 1,000 mls @ 75 mls/hr IV ASDIRECTED [facility] Last Admin: 06/15/18 05:17 Dose: 75 mls/hr Pantoprazole Sodium (Protonix) 20 mg PO ACBREAKFAST [facility] - Exam Quality Assessment: DVT Prophylaxis. No: Supplemental Oxygen, Urine Catheter General: Alert, Oriented, Cooperative, No Acute Distress HEENT: Pupils Equal, Mucous Membr. Moist/[place] Neck: Supple, No JVD, No Thyromegaly Lungs: Clear to Auscultation, Normal Respiratory Effort. No: Wheezing Cardiovascular: Regular Rate, Regular Rhythm, Murmurs GI/Abdominal Exam: Normal Bowel Sounds, Soft, Non-Tender, No Distention. No: Guarding, Rebound, Tender (Male) Exam: Deferred Back Exam: Normal Inspection, Full Range of Motion Extremities: Normal Inspection, No Pedal Edema Skin: Warm, Dry, Intact Neurological: No New Focal Deficit Psy/Mental Status: Alert, Normal Affect, Normal Mood - Problem List Review Problem List Initiated/Reviewed/Updated: Yes - My Orders Last 24 Hours: My Active Orders 06/16/18 21:00 Sodium Bicarbonate 650 mg PO BID 06/17/18 06:00 Omeprazole 20 mg PO ACBREAKFAST - Plan Plan:: This is a 82-year-old gentleman who lives alone, taking aspirin only, no chronic medical problem, presented with weakness. His u/c was done and it was Klebsiella Pneumoniae and B/C also positive for Klebsiella ( Culture from ), repeat B/C from 06/15/18) showing no growth Impression and Plan: 1. Urinary tract infection with sepsis/Bacteremia BC: Klebsiella Pneumoniae ( from 06/13/18) Ucx: Klebsiella Pneumoniae ( From 06/13/18), repeat B/C from 06/15- showing no growth so far echo: pending - bacteria is susceptible to Rocephin and will continue , he will need 2 weeks IV Abx - Follow repeat cultures ( desi on 06/15) 2. Dehydration, acute renal failure, hyponatremia Likely due to low oral intake improved with IV fluids Follow renal function test in AM ( labs ordered) for Monday 3. DVT prophylaxis with subcutaneous heparin 4. GI prophylaxis: Continue protonix 5. Disposition: will change him to swing bed today ( 06/17/18)
--- NOTE | 2018-06-17 14:49 | PCM.DCSUM1 ---
Discharge Summary - Hospital Course Free Text/Narrative:: This is a 82-year-old gentleman who lives alone, taking aspirin only, no chronic medical problem, presented with weakness. His u/c was done and it was Klebsiella Pneumoniae and B/C also positive for Klebsiella ( Culture from ), repeat B/C from 06/15/18) showing no growth. He is now getting treated with IV ceftriaxone and will continue for 2 weeks, will follow Echo once done.He will be transferred to swing bed and will continue current care. - Discharge Data Discharge Date: 06/17/18 Discharge Disposition: DC/Tfer W/I Hosp To Swing Condition: Good - Patient Instructions Diet: Usual Diet as Tolerated Activity: As Tolerated Showering/Bathing: May Shower Notify Provider of: Nausea and/or Vomiting - Discharge Plan Home Medications: Home Meds Aspirin [Halfprin] 81 mg PO DAILY 02/09/18 [History] Forms: ED Department Discharge - Discharge Summary/Plan Comment DC Time >30 min.: Yes Discharge Summary/Plan Comment: This is a 82-year-old gentleman who lives alone, taking aspirin only, no chronic medical problem, presented with weakness. His u/c was done and it was Klebsiella Pneumoniae and B/C also positive for Klebsiella ( Culture from ), repeat B/C from 06/15/18) showing no growth Impression and Plan: 1. Urinary tract infection with sepsis/Bacteremia BC: Klebsiella Pneumoniae ( from 06/13/18) Ucx: Klebsiella Pneumoniae ( From 06/13/18), repeat B/C from 06/15- showing no growth so far echo: pending - bacteria is susceptible to Rocephin and will continue , he will need 2 weeks IV Abx - Follow repeat cultures ( desi on 06/15) 2. Dehydration, acute renal failure, hyponatremia Likely due to low oral intake improved with IV fluids Follow renal function test in AM ( labs ordered) for Monday 3. DVT prophylaxis with subcutaneous heparin 4. GI prophylaxis: Continue protonix 5. Disposition: will change him to swing bed today ( 06/17/18) - General Info Date of Service: 06/17/18 Admission Dx/Problem (Free Text: Admission Diagnosis/Problem Admission Diagnosis/Problem UTI(Urinary tract infection) and weakness Subjective Update: Pt was seen in room, feeling better, no fever or chill, No nausea or Vomiting, appetite is good, No dysuria or Flank pain, No chest pain or shortness of breath , complain of having lose BM Functional Status: Reports: Pain Controlled, Tolerating Diet, Ambulating, Urinating - Review of Systems General: Reports: Appetite (good). Denies: Fever, Chills HEENT: Denies: Headaches, Sinus Congestion, Sore Throat, Visual Changes Pulmonary: Denies: Shortness of Breath, Cough, Sputum, Wheezing Cardiovascular: Denies: Chest Pain, Dyspnea on Exertion, Lightheadedness Gastrointestinal: Denies: Abdominal Pain, Diarrhea, Nausea, Vomiting Genitourinary: Denies: Dysuria, Burning, Urgency, Flank Pain Musculoskeletal: Denies: Neck Pain, Shoulder Pain, Foot Pain Skin: Denies: Jaundice, Diaphoresis, Bruising, Pruritis, Rash Neurological: Denies: Confusion, Numbness, Tremors Psychiatric: Denies: Confusion, Anxiety - Patient Data Vitals - Most Recent: Last Vital Signs Temp 36.6 C 06/17/18 12:00 Pulse 63 06/17/18 12:00 Resp 20 06/17/18 12:00 BP 127/56 L 06/17/18 12:00 Pulse Ox 94 L 06/17/18 12:00 Weight - Most Recent: 76.476 kg I&O - Last 24 hours: Intake & Output 06/16/18 06/17/18 06/17/18 22:59 06:59 14:59 Intake Total 1400 1140 Output Total 300 225 Balance 1100 915 Lab Results - Last 24 hrs: Laboratory Results - last 24 hr 06/17/18 Range/Units 06:10 Sodium 132 L (135-145) mmol/L Potassium 3.6 (3.6-5.0) mmol/L Chloride 103 (101-111) mmol/L Carbon Dioxide 20.0 L (21.0-31.0) mmol/L Anion Gap 12.6 BUN 13 (7-18) mg/dL Creatinine 1.0 (0.6-1.3) mg/dL Est Cr Clr Drug Dosing 49.62 mL/min Estimated GFR (MDRD) > 60 Glucose 101 (74-105) mg/dL Calcium 7.4 L (8.4-10.2) mg/dl [facility] Results - Last 24 hrs: Microbiology 06/15/18 11:37 Aerobic Blood Culture - Preliminary Blood - Venous - Lab Draw NO GROWTH AFTER 2 DAYS Anaerobic Blood Culture - Preliminary NO GROWTH AFTER 2 DAYS 06/15/18 11:34 Aerobic Blood Culture - Preliminary Blood - Venous NO GROWTH AFTER 2 DAYS Anaerobic Blood Culture - Preliminary NO GROWTH AFTER 2 DAYS Med Orders - Current: Current Medications Acetaminophen (Tylenol) 650 mg PO Q4H PRN PRN Reason: Pain (Mild 1-3)/fever Aspirin (Halfprin) 81 mg PO DAILY [facility] Last Admin: 06/17/18 09:05 Dose: 81 mg Heparin Sodium (Porcine) (Heparin Sodium) 5,000 units SUBCUT Q8HR [facility] Last Admin: 06/17/18 14:19 Dose: 5,000 units Ceftriaxone Sodium 1 gm/ (Sodium Chloride) 50 mls @ 50 mls/hr IV Q24H [facility] Last Admin: 06/16/18 19:57 Dose: 50 mls/hr Omeprazole (Omeprazole) 20 mg PO ACBREAKFAST [facility] Last Admin: 06/17/18 05:34 Dose: 20 mg Ondansetron HCl (Zofran) 4 mg IVPUSH Q4H PRN PRN Reason: Nausea/Vomiting Oxycodone HCl (Oxycodone) 5 mg PO Q4H PRN PRN Reason: Pain (severe 7-10) Senna/Docusate Sodium (Senna Plus) 1 tab PO BEDTIME PRN PRN Reason: Constipation Sodium Bicarbonate (Sodium Bicarbonate) 650 mg PO BID [facility] Last Admin: 06/17/18 09:05 Dose: 650 mg Sodium Chloride (Saline Flush) 10 ml FLUSH ASDIRECTED PRN PRN Reason: Keep Vein Open Last Admin: 06/16/18 10:01 Dose: 10 ml Zolpidem Tartrate (Ambien) 5 mg PO BEDTIME PRN PRN Reason: Sleep Discontinued Medications Docusate Sodium (Colace) 100 mg PO BID [facility] Last Admin: 06/17/18 09:06 Dose: Not Given Lactated Ringer's (Ringers, Lactated) 1,000 mls @ 999 mls/hr IV .BOLUS ONE Stop: 06/13/18 22:31 Last Admin: 06/13/18 22:02 Dose: 999 mls/hr Sodium Chloride (Normal Saline) 1,000 mls @ 999 mls/hr IV .BOLUS ONE Stop: 06/13/18 23:21 Last Admin: 06/13/18 23:58 Dose: 999 mls/hr Ceftriaxone Sodium 1,000 mg/ (Sodium Chloride) 100 mls @ 200 mls/hr IV ONETIME ONE Stop: 06/13/18 22:52 Last Admin: 06/13/18 23:58 Dose: 200 mls/hr Potassium Chloride/Sodium Chloride (Normal Saline With 20 Meq Kcl) 1,000 mls @ 75 mls/hr IV ASDIRECTED [facility] Last Admin: 06/15/18 05:17 Dose: 75 mls/hr Pantoprazole Sodium (Protonix) 20 mg PO ACBREAKFAST [facility] - Exam Quality Assessment: Reports: DVT Prophylaxis. Denies: Supplemental Oxygen, Urine Catheter General: Reports: Alert, Oriented, Cooperative, No Acute Distress HEENT: Reports: Pupils Equal, Pupils Reactive, EOMI, Mucous Membr. Moist/[place] Neck: Reports: Supple, No JVD, No Thyromegaly Lungs: Reports: Clear to Auscultation, Normal Respiratory Effort. Denies: Wheezing Cardiovascular: Reports: Regular Rate, Regular Rhythm, Murmurs GI/Abdominal Exam: Normal Bowel Sounds, Soft, Non-Tender, No Distention. No: Guarding, Rigid, Rebound (Male) Exam: Deferred Rectal (Males) Exam: Deferred Back Exam: Reports: Normal Inspection, Full Range of Motion Extremities: Normal Inspection, No Pedal Edema Skin: Reports: Warm, Dry, Intact Neurological: Reports: No New Focal Deficit Psy/Mental Status: Reports: Alert, Normal Affect, Normal Mood
== END 2018-06-17 14:58 | disposition swing bed (61) | DRG 872 ==
LOC: DL.ED 20:53 → UNDOADMIN 22:32 → DL.MS 22:32
PROVIDERS: ADMIT Internal Medicine; ATTEND Internal Medicine
DX: A41.59 Other Gram-negative sepsis (principal); N39.0 Urinary tract infection, site not specified; N17.9 Acute kidney failure, unspecified; E87.1 Hypo-osmolality and hyponatremia; E86.0 Dehydration; H54.7 Unspecified visual loss; I25.10 Atherosclerotic heart disease of native coronary artery without angina pectoris; F17.210 Nicotine dependence, cigarettes, uncomplicated; R31.9 Hematuria, unspecified; Z79.82 Long term (current) use of aspirin; Z94.7 Corneal transplant status; Z23 Encounter for immunization
CPT/HCPCS: 36415; 71045; 80048; 80053; 81001; 83605; 84484; 85025; 87040; 87077; 87086; 87088; 87186; 93005; 93010; 93306; 96365; 99284; 99285; A9270-GY; J0696; J1644; J3480; J7030; J7050; J7120

== ENCOUNTER 2018-06-17 15:05 | Inpatient (IN) | payer MEDICARE, MEDICAID ==
[2018-06-17] MEDS ORDERED: Acetaminophen 325 MG Tab PO PRN (15:11)
[2018-06-17] MEDS ORDERED: Docusate Sodium 100 MG Cap PO PRN (15:11)
[2018-06-17] MEDS ORDERED: Ondansetron 4 MG Tab.DIS PO PRN (15:11)
--- NOTE | 2018-06-17 15:41 | PCM.HP ---
H&P History of Present Illness - General Date of Service: 06/17/18 Admit Problem/Dx: Admission Diagnosis/Problem Admission Diagnosis/Problem UTI, Urinary tract infectious disease Source of Information: Patient, EMS Notes Reviewed, Old Records History Limitations: Reports: No Limitations - History of Present Illness Initial Comments - Free Text/Narative: This is a 82-year-old gentleman who lives alone, taking aspirin only, no chronic medical problem, presented with weakness. His u/c was done and it was Klebsiella Pneumoniae and B/C also positive for Klebsiella ( Culture from ), repeat B/C from 06/15/18) showing no growth. 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 Onset of Symptoms: Reports: Gradual Quality: Reports: Burning - Related Data Allergies/Adverse Reactions: Allergies Allergy/AdvReac Type Severity Reaction Status Date / Time No Known Allergies Allergy Verified 06/17/18 15:21 Home Medications: Home Meds Aspirin [Halfprin] 81 mg PO DAILY 02/09/18 [History] Past Medical History - Past Health History Medical/Surgical History: Denies Medical/Surgical History HEENT History: Reports: Impaired Vision Cardiovascular History: Reports: CAD Respiratory History: Reports: Other (See Below) Dermatologic History: Reports: Cellulitis - Infectious Disease History Infectious Disease History: Reports: Chicken Pox, Measles, Mumps - Past Surgical History HEENT Surgical History: Reports: Adenoidectomy, Tonsillectomy, Other (See Below) Other HEENT Surgeries/Procedures: corneal transplant left eye Social & Family History - Family History Family Medical History: Noncontributory - Caffeine Use Caffeine Use: Reports: Coffee - Living Situation & Occupation Living situation: Reports: with Family Occupation: Retired H&P Review of Systems - Review of Systems: Review Of Systems: See Below General: Reports: Weakness. Denies: Fever, Chills, Weight Gain HEENT: Denies: Dysphasia, Headaches, Sinus Congestion, Sore Throat, Visual Changes Pulmonary: Denies: Shortness of Breath, Wheezing, Cough, Sputum Cardiovascular: Denies: Chest Pain, Dyspnea on Exertion, Lightheadedness Gastrointestinal: Denies: Abdominal Pain, Diarrhea, Difficulty Swallowing, Nausea, Vomiting Genitourinary: Denies: Dysuria, Frequency, Burning, Urgency, Flank Pain Musculoskeletal: Denies: Neck Pain, Shoulder Pain, Foot Pain Skin: Denies: Jaundice, Bruising, Pruritis, Rash Psychiatric: Denies: Confusion, Anxiety Neurological: Denies: Confusion, Numbness, Tremors Hematologic/Lymphatic: Reports: No Symptoms Immunologic: Reports: No Symptoms Exam - Exam Exam: See Below - Vital Signs Vital Signs: Last Vital Signs Temp 36.6 C 06/17/18 15:11 Pulse 63 06/17/18 15:11 Resp 20 06/17/18 15:11 BP 127/56 L 06/17/18 15:11 Pulse Ox 94 L 06/17/18 15:11 - Exam Quality Assessment: DVT Prophylaxis. No: Supplemental Oxygen, Central Line/PICC , Urinary Catheter General: Alert, Oriented, Cooperative HEENT: Conjunctiva Clear, EOMI, Hearing Intact, Mucosa Moist & [place] Neck: Supple. No: Lymphadenopathy, Thyromegaly Lungs: Clear to Auscultation, Normal Respiratory Effort. No: Rhonchi, Wheezing Cardiovascular: Regular Rate, Regular Rhythm, Systolic Murmur GI/Abdominal Exam: Normal Bowel Sounds, Soft, Non-Tender, No Organomegaly, No Distention (Male) Exam: Deferred Rectal (Males) Exam: Deferred Back Exam: Normal Inspection, Full Range of Motion Extremities: Normal Inspection, No Pedal Edema Skin: Warm, Dry, Intact Neurological: Cranial Nerves Intact, Reflexes Equal Bilateral Neuro Extensive - Mental Status: Alert, Oriented x3, Normal Mood/Affect, Normal Cognition, Memory Intact Neuro Extensive - Motor, Sensory, Reflexes: CN II-XII Intact, Normal Gait, Normal Reflexes Psychiatric: Alert, Normal Affect, Normal Mood - Problem List (1) Sepsis SNOMED Code(s): 23996801 ICD Code: A41.9 - SEPSIS, UNSPECIFIED ORGANISM Status: Acute Current Visit: No (2) UTI (urinary tract infection) SNOMED Code(s): 88283348 ICD Code: N39.0 - URINARY TRACT INFECTION, SITE NOT SPECIFIED Status: Acute Current Visit: No Problem List Initiated/Reviewed/Updated: Yes Orders Last 24hrs: Active Orders 24 hr Category Date Time Status Patient Status [ADT] Routine ADT 06/17/18 15:11 Active Ambulate [RC] ASDIRECTED Care 06/17/18 15:11 Active Ambulate [RC] ASDIRECTED Care 06/17/18 15:11 Active Antiembolic Devices [RC] PER UNIT ROUTINE Care 06/17/18 15:17 Active Height and Weight [RC] WEEKLY Care 06/17/18 15:14 Active Intake and Output [RC] QSHIFT Care 06/17/18 15:14 Active May Shower [RC] ASDIRECTED Care 06/17/18 15:11 Active Oxygen Therapy [RC] PRN Care 06/17/18 15:11 Active Peripheral IV Care [RC] . DIRECTED Care 06/17/18 15:17 Active Up With Assistance [RC] ASDIRECTED Care 06/17/18 15:11 Active Up to Chair [RC] ASDIRECTED Care 06/17/18 15:11 Active VTE/DVT Education [RC] PER UNIT ROUTINE Care 06/17/18 15:11 Active Vital Signs [RC] 08,20 Care 06/17/18 15:11 Active OT Evaluation and Treatment [CONS] Routine Cons 06/17/18 15:11 Active PT Evaluation and Treatment [CONS] Routine Cons 06/17/18 15:11 Active Regular Diet [DIET] Diet 06/17/18 Dinner Active BASIC METABOLIC PANEL,BMP [CHEM] Routine Lab 06/18/18 06:00 Ordered Acetaminophen [Tylenol] Med 06/17/18 15:11 Active 650 mg PO Q4H PRN Aspirin [Halfprin] Med 06/18/18 09:00 Active 81 mg PO DAILY Docusate Sodium [Colace] Med 06/17/18 15:11 Active 100 mg PO BID PRN Heparin Sodium Med 06/17/18 22:00 Active 5,000 units SUBCUT Q8HR Omeprazole Med 06/18/18 09:00 Active 20 mg PO DAILY Ondansetron [Zofran ODT] Med 06/17/18 15:11 Active 4 mg PO Q6H PRN Sodium Bicarbonate Med 06/17/18 21:00 Active 650 mg PO BID Sodium Chloride 0.9% [Saline Flush] Med 06/17/18 15:11 Active 10 ml FLUSH ASDIRECTED PRN cefTRIAXone [Rocephin] 1 gm Med 06/17/18 20:00 Active Sodium Chloride 0.9% [Normal Saline] 50 ml IV Q24H Antiembolic Hose [OM.PC] Routine Oth 06/17/18 15:11 Ordered Peripheral IV Insertion Adult [OM.PC] Routine Oth 06/17/18 15:11 Ordered Saline Lock Insert [OM.PC] Routine Oth 06/17/18 15:11 Ordered Resuscitation Status Routine Resus Stat 06/17/18 15:11 Ordered Medication Orders Acetaminophen (Tylenol) 650 mg PO Q4H PRN PRN Reason: Pain (Mild 1-3)/fever Aspirin (Halfprin) 81 mg PO DAILY [facility] Docusate Sodium (Colace) 100 mg PO BID PRN PRN Reason: Constipation Heparin Sodium (Porcine) (Heparin Sodium) 5,000 units SUBCUT Q8HR [facility] Ceftriaxone Sodium 1 gm/ (Sodium Chloride) 50 mls @ 50 mls/hr IV Q24H [facility] Stop: 06/27/18 20:01 Omeprazole (Omeprazole) 20 mg PO DAILY [facility] Ondansetron HCl (Zofran Odt) 4 mg PO Q6H PRN PRN Reason: nausea, able to take PO Sodium Bicarbonate (Sodium Bicarbonate) 650 mg PO BID [facility] Sodium Chloride (Saline Flush) 10 ml FLUSH ASDIRECTED PRN PRN Reason: Keep Vein Open Assessment/Plan Comment:: This is a 82-year-old gentleman who lives alone, taking aspirin only, no chronic medical problem, presented with weakness. His u/c was done and it was Klebsiella Pneumoniae and B/C also positive for Klebsiella ( Culture from ), repeat B/C from 06/15/18) showing no growth Impression and Plan: 1. Urinary tract infection with sepsis/Bacteremia BC: Klebsiella Pneumoniae ( from 06/13/18) Ucx: Klebsiella Pneumoniae ( From 06/13/18), repeat B/C from 06/15- showing no growth so far echo: pending - bacteria is susceptible to Rocephin and will continue , he will need 2 weeks IV Abx - Follow repeat cultures ( desi on 06/15) 2. Dehydration, acute renal failure, hyponatremia Likely due to low oral intake improved with IV fluids Follow renal function test in AM ( labs ordered) for Monday 3. DVT prophylaxis with subcutaneous heparin 4. GI prophylaxis: Continue protonix 5. Code Status: Full Code
[2018-06-17] MEDS ORDERED: cefTRIAXone 1 GM in Sodium Chloride 0.9% 50 ML IV SCH (20:00)
[2018-06-17] MEDS: Sodium Bicarbonate 650 MG Tab PO SCH (20:39)
[2018-06-17] MEDS: Heparin Sodium 5,000 Units/ML Vial SUBCUT SCH (22:12)
[2018-06-18] MEDS: Heparin Sodium 5,000 Units/ML Vial SUBCUT SCH ×3 (05:37→22:22)
[2018-06-18 06:54] LABS: ANION GAP 15.2; CHLORIDE,CL 101 mmol/L (101-111); SODIUM,NA 135 mmol/L (135-145)
[2018-06-18] MEDS ORDERED: Omeprazole 20 MG Cap.CR PO SCH (09:00)
[2018-06-18] MEDS: Sodium Bicarbonate 650 MG Tab PO SCH ×2 (09:29→20:19)
[2018-06-18] MEDS: Sodium Chloride 0.9% 10 ML Syringe FLUSH PRN ×2 (09:29→20:18)
[2018-06-18] MEDS: Aspirin 81 MG Tab.EC PO SCH (09:29)
--- NOTE | 2018-06-18 12:56 | PCM.PN ---
- General Info Date of Service: 06/18/18 - Review of Systems General: Reports: Weakness. Denies: Fever Pulmonary: Denies: Shortness of Breath Cardiovascular: Denies: Chest Pain Gastrointestinal: Denies: Abdominal Pain Genitourinary: Denies: Dysuria - Patient Data Vitals - Most Recent: Last Vital Signs Temp 36.4 C 06/18/18 08:27 Pulse 62 06/18/18 08:27 Resp 20 06/18/18 08:27 BP 144/54 H 06/18/18 08:27 Pulse Ox 98 06/18/18 08:27 Weight - Most Recent: 76.476 kg I&O - Last 24 Hours: Intake & Output 06/17/18 06/18/18 06/18/18 22:59 06:59 14:59 Intake Total 690 Balance 690 Lab Results Last 24 Hours: Laboratory Results - last 24 hr 06/18/18 Range/Units 06:00 Sodium 135 (135-145) mmol/L Potassium 4.2 (3.6-5.0) mmol/L Chloride 101 (101-111) mmol/L Carbon Dioxide 23.0 (21.0-31.0) mmol/L Anion Gap 15.2 BUN 16 (7-18) mg/dL Creatinine 1.1 (0.6-1.3) mg/dL Est Cr Clr Drug Dosing 45.11 mL/min Estimated GFR (MDRD) > 60 Glucose 96 (74-105) mg/dL Calcium 7.9 L (8.4-10.2) mg/dl Med Orders - Current: Current Medications Acetaminophen (Tylenol) 650 mg PO Q4H PRN PRN Reason: Pain (Mild 1-3)/fever Aspirin (Halfprin) 81 mg PO DAILY [facility] Last Admin: 06/18/18 09:29 Dose: 81 mg Docusate Sodium (Colace) 100 mg PO BID PRN PRN Reason: Constipation Heparin Sodium (Porcine) (Heparin Sodium) 5,000 units SUBCUT Q8HR [facility] Last Admin: 06/18/18 05:37 Dose: 5,000 units Ciprofloxacin/Dextrose 400 mg/ (Premix) 200 mls @ 200 mls/hr IV Q12HR [facility] Omeprazole (Omeprazole) 20 mg PO DAILY [facility] Last Admin: 06/18/18 09:29 Dose: 20 mg Sodium Bicarbonate (Sodium Bicarbonate) 650 mg PO BID [facility] Last Admin: 06/18/18 09:29 Dose: 650 mg Sodium Chloride (Saline Flush) 10 ml FLUSH ASDIRECTED PRN PRN Reason: Keep Vein Open Last Admin: 06/18/18 09:29 Dose: 10 ml Discontinued Medications Ceftriaxone Sodium 1 gm/ (Sodium Chloride) 50 mls @ 50 mls/hr IV Q24H [facility] Stop: 06/27/18 20:01 Last Admin: 06/17/18 20:06 Dose: 50 mls/hr Ondansetron HCl (Zofran Odt) 4 mg PO Q6H PRN PRN Reason: nausea, able to take PO - Exam General: Alert, Oriented Neck: Supple Lungs: Clear to Auscultation Cardiovascular: Regular Rate, Regular Rhythm GI/Abdominal Exam: Normal Bowel Sounds, Soft, Non-Tender Extremities: No Pedal Edema - Problem List & Annotations (1) UTI (urinary tract infection) SNOMED Code(s): 98515751 Code(s): N39.0 - URINARY TRACT INFECTION, SITE NOT SPECIFIED Status: Acute Current Visit: No - Problem List Review Problem List Initiated/Reviewed/Updated: Yes - My Orders Last 24 Hours: My Active Orders 06/18/18 21:00 Ciprofloxacin in D5W [Cipro in D5W 400 MG/200 ML] 400 mg Premix Bag 1 bag IV Q12HR - Plan Plan:: This is a 82-year-old gentleman who lives alone, taking aspirin only, no chronic medical problem, presented with weakness. His u/c was done and it was Klebsiella Pneumoniae and B/C also positive for Klebsiella ( Culture from ), repeat B/C from 06/15/18 showing no growth Impression and Plan: 1. Urinary tract infection with sepsis/Bacteremia BC: Klebsiella Pneumoniae ( from 06/13/18) Ucx: Klebsiella Pneumoniae ( From 06/13/18), repeat B/C from 06/15- showing no growth echo: still pending - bacteria is susceptible to Rocephin and cipro - will treat with ciprofloxacin , he will need 2 weeks IV Abx 2. Dehydration, acute renal failure, hyponatremia Likely due to low oral intake improved with IV fluids stable - follow periodically 3. DVT prophylaxis with subcutaneous heparin 4. GI prophylaxis: Continue protonix 5. Code Status: Full Code
[2018-06-18] MEDS: Ciprofloxacin in D5W 400 MG in Premix Bag 1 BAG IV SCH ×2 (20:18)
[2018-06-19] MEDS: Heparin Sodium 5,000 Units/ML Vial SUBCUT SCH ×3 (05:38→21:00)
[2018-06-19] MEDS: Omeprazole 20 MG Cap.CR PO SCH (05:39)
[2018-06-19] MEDS: Sodium Bicarbonate 650 MG Tab PO SCH ×2 (08:21→21:00)
[2018-06-19] MEDS: Aspirin 81 MG Tab.EC PO SCH (08:21)
[2018-06-19] MEDS: Sodium Chloride 0.9% 10 ML Syringe FLUSH PRN ×2 (08:46→20:57)
[2018-06-19] MEDS: Ciprofloxacin in D5W 400 MG in Premix Bag 1 BAG IV SCH ×4 (08:46→20:56)
[2018-06-20] MEDS: Omeprazole 20 MG Cap.CR PO SCH (05:44)
[2018-06-20] MEDS: Heparin Sodium 5,000 Units/ML Vial SUBCUT SCH ×3 (05:44→21:33)
[2018-06-20] MEDS: Sodium Bicarbonate 650 MG Tab PO SCH ×2 (09:07→20:42)
[2018-06-20] MEDS: Ciprofloxacin in D5W 400 MG in Premix Bag 1 BAG IV SCH ×4 (09:07→20:44)
[2018-06-20] MEDS: Aspirin 81 MG Tab.EC PO SCH (09:07)
[2018-06-20] MEDS: Sodium Chloride 0.9% 10 ML Syringe FLUSH PRN (09:07)
[2018-06-21] MEDS: Heparin Sodium 5,000 Units/ML Vial SUBCUT SCH ×3 (05:31→21:49)
[2018-06-21] MEDS: Omeprazole 20 MG Cap.CR PO SCH (05:31)
[2018-06-21] MEDS: Sodium Chloride 0.9% 10 ML Syringe FLUSH PRN (08:54)
[2018-06-21] MEDS: Aspirin 81 MG Tab.EC PO SCH (08:54)
[2018-06-21] MEDS: Sodium Bicarbonate 650 MG Tab PO SCH ×2 (08:54→21:48)
[2018-06-21] MEDS: Ciprofloxacin in D5W 400 MG in Premix Bag 1 BAG IV SCH ×4 (08:54→21:49)
[2018-06-22] MEDS: Omeprazole 20 MG Cap.CR PO SCH (05:48)
[2018-06-22] MEDS: Heparin Sodium 5,000 Units/ML Vial SUBCUT SCH ×3 (05:48→21:10)
[2018-06-22] MEDS: Ciprofloxacin in D5W 400 MG in Premix Bag 1 BAG IV SCH ×4 (10:05→21:11)
[2018-06-22] MEDS: Aspirin 81 MG Tab.EC PO SCH (10:05)
[2018-06-22] MEDS: Sodium Bicarbonate 650 MG Tab PO SCH ×2 (10:05→21:10)
[2018-06-23] MEDS: Heparin Sodium 5,000 Units/ML Vial SUBCUT SCH ×3 (07:02→22:36)
[2018-06-23] MEDS: Omeprazole 20 MG Cap.CR PO SCH (07:02)
[2018-06-23] MEDS: Sodium Bicarbonate 650 MG Tab PO SCH ×2 (09:38→22:37)
[2018-06-23] MEDS: Aspirin 81 MG Tab.EC PO SCH (09:38)
[2018-06-23] MEDS: Ciprofloxacin in D5W 400 MG in Premix Bag 1 BAG IV SCH ×4 (09:39→22:39)
[2018-06-24] MEDS: Heparin Sodium 5,000 Units/ML Vial SUBCUT SCH ×3 (06:29→21:39)
[2018-06-24] MEDS: Omeprazole 20 MG Cap.CR PO SCH (06:29)
[2018-06-24] MEDS: Ciprofloxacin in D5W 400 MG in Premix Bag 1 BAG IV SCH ×4 (09:08→20:37)
[2018-06-24] MEDS: Sodium Chloride 0.9% 10 ML Syringe FLUSH PRN ×2 (09:08→20:14)
[2018-06-24] MEDS: Sodium Bicarbonate 650 MG Tab PO SCH ×2 (09:11→20:50)
[2018-06-24] MEDS: Aspirin 81 MG Tab.EC PO SCH (09:12)
[2018-06-25] MEDS: Heparin Sodium 5,000 Units/ML Vial SUBCUT SCH ×2 (05:38→13:58)
[2018-06-25] MEDS: Omeprazole 20 MG Cap.CR PO SCH (05:40)
[2018-06-25] MEDS: Aspirin 81 MG Tab.EC PO SCH (09:04)
[2018-06-25] MEDS: Sodium Bicarbonate 650 MG Tab PO SCH ×2 (09:04→20:27)
[2018-06-25] MEDS: Ciprofloxacin in D5W 400 MG in Premix Bag 1 BAG IV SCH ×4 (09:04→20:27)
[2018-06-25] MEDS: Sodium Chloride 0.9% 10 ML Syringe FLUSH PRN ×2 (20:27→22:30)
[2018-06-26] MEDS: Omeprazole 20 MG Cap.CR PO SCH (05:32)
[2018-06-26] MEDS ORDERED: Enoxaparin 40 MG/0.4 ML Syringe SUBCUT SCH (09:00)
[2018-06-26] MEDS: Sodium Bicarbonate 650 MG Tab PO SCH (09:24)
[2018-06-26] MEDS: Aspirin 81 MG Tab.EC PO SCH (09:24)
[2018-06-26] MEDS: Ciprofloxacin in D5W 400 MG in Premix Bag 1 BAG IV SCH ×2 (11:00)
--- NOTE | 2018-06-26 14:46 | US ---
Clinical history: 82-year-old male hospitalized with sepsis (Klebsiella in the urine and blood). Interpretation: Midline uterus symmetrically distended with a full volume calculated 215 mL (significant postvoiding" bladder residual volume of 100 mL). Large prostate gland with the urinary bladder wall does not appear to be particularly thickened. No mucosal wall mass and no dependent intraluminal echogenic "shadowing" urinary bladder stones.
[2018-06-26] MEDS ORDERED: Pneumococcal Polyvalent-23 Vaccine 0.5 ML SDV IM ONE (15:26)
== END 2018-06-26 17:30 | disposition home or self-care (01) | DRG 872 ==
LOC: DL.MS 15:05 → UNDOADMIN 15:05 → DL.MS 15:11
PROVIDERS: ADMIT Internal Medicine Nephrology; ATTEND Internal Medicine Nephrology
DX: A41.59 Other Gram-negative sepsis (principal); N39.0 Urinary tract infection, site not specified; N17.9 Acute kidney failure, unspecified; E87.1 Hypo-osmolality and hyponatremia; B96.1 Klebsiella pneumoniae [K. pneumoniae] as the cause of diseases classified elsewhere; H54.7 Unspecified visual loss; I25.10 Atherosclerotic heart disease of native coronary artery without angina pectoris; E86.0 Dehydration; Z79.82 Long term (current) use of aspirin; Z98.890 Other specified postprocedural states; Z94.7 Corneal transplant status; Z23 Encounter for immunization
CPT/HCPCS: 36415; 76775; 80048; 85007; 85048; 90732; 97161-GP; 97165-GO; A9270-GY; J0696; J0744; J1644; J1650; J7050

== ENCOUNTER 2021-11-27 13:49 | Inpatient (IN) | payer MEDICARE, MEDICAID ==
[2021-11-27 14:47] LABS: PTT,PARTIAL THROMBOPLSTIN TIME 29.1 SEC (22.0-34.0)
[2021-11-27 14:52] LABS: ANION GAP 15.1 mEq/L (7-13); CHLORIDE,CL 99 mmol/L (98-107); SODIUM,NA 133 mmol/L (136-145)
[2021-11-27 14:57] LABS: ESTIMATED GFR 35 mL/min (>=60)
[2021-11-27] MEDS ORDERED: Sodium Chloride 0.9% 1,000 ML IV ONE (15:03)
[2021-11-27 15:17] LABS: RESPIRATORY SYNCYTIAL VIR NAA NEGATIVE (NEGATIVE)
[2021-11-27 15:19] LABS: CORONAVIRUS COVID-19 NAA POSITIVE (NEGATIVE)
[2021-11-27 16:17] LABS: O2 DELIVERY DEVICE NASAL CANNULA; PCO2 ARTERIAL 29 mmHg (35-45); PO2 ARTERIAL 73 mmHg (70-100)
[2021-11-27 16:18] LABS: ALLEN TEST PERFORMED; BASE EXCESS ARTERIAL -7 mmol/L ((-2)-(+3)); BICARBONATE,ARTERIAL 16.6 mmol/L (22-26); O2 FLOW RATE 2; O2 SATURATION ARTERIAL 94 % (95-100)
[2021-11-27] MEDS ORDERED: Albuterol/Ipratropium 3.0-0.5 MG/3 ML Neb Soln NEB PRN (17:36)
[2021-11-27] MEDS ORDERED: HYDROmorphone 0.5 MG/0.5 ML Syringe IVPUSH PRN (17:36)
[2021-11-27] MEDS ORDERED: Polyethylene Glycol 3350 Powder 17 GM Packet PO PRN (17:36)
[2021-11-27] MEDS ORDERED: Acetaminophen/HYDROcodone 325-5 MG Tab PO PRN (17:36)
[2021-11-27] MEDS ORDERED: Acetaminophen 325 MG Tab PO PRN (17:36)
[2021-11-27] MEDS ORDERED: Bisacodyl 5 MG Tab PO PRN (17:36)
[2021-11-27] MEDS ORDERED: Magnesium Hydroxide 400 MG/5 ML Susp 30 ML Cup PO PRN (17:36)
[2021-11-27] MEDS ORDERED: Docusate Sodium 100 MG Cap PO PRN (17:36)
[2021-11-27] MEDS ORDERED: Ondansetron 4 MG/2 ML SDV IVPUSH PRN (17:36)
[2021-11-27] MEDS ORDERED: Dexamethasone 6 MG TABLET PO ONE (17:38)
[2021-11-27] MEDS ORDERED: REMDESIVIR 200 MG in Sodium Chloride 0.9% 250 ML IV ONE (17:39)
[2021-11-27 17:47] LABS: AMPHETAMINES,URINE NEGATIVE (NEGATIVE); BARBITURATES,URINE NEGATIVE (NEGATIVE); BENZODIAZEPINE,URINE NEGATIVE (NEGATIVE); MDMA (ECSTASY), URINE NEGATIVE (NEGATIVE); METHADONE,URINE NEGATIVE (NEGATIVE); METHAMPHETAMINES,URINE NEGATIVE (NEGATIVE); OPIATES,URINE NEGATIVE (NEGATIVE); OXYCODONE,URINE NEGATIVE (NEGATIVE); PHENCYCLIDINE,URINE NEGATIVE (NEGATIVE); TCA,URINE NEGATIVE (NEGATIVE)
[2021-11-27] MEDS ORDERED: 50% Dextrose in Water 50 ML Syringe IVPUSH PRN (18:09)
[2021-11-27] MEDS ORDERED: Glucagon,Human Recombinant 1 MG Vial IM PRN (18:09)
[2021-11-27] MEDS ORDERED: Metoprolol Tartrate 5 MG/5 ML SDV IVPUSH PRN (18:30)
[2021-11-27] MEDS ORDERED: hydrALAZINE 20 MG/ML SDV IVPUSH PRN (18:30)
[2021-11-27] MEDS ORDERED: Nicotine 21 MG/24 Hr Patch TRDERM PRN (18:30)
[2021-11-27 18:55] LABS: ANION GAP 25.2 mEq/L (7-13)
[2021-11-27] MEDS ORDERED: Water For Injection, Sterile 40 ML ONE (19:18)
[2021-11-27] MEDS: Sodium Chloride 0.9% 10 ML Syringe FLUSH PRN ×2 (19:47→22:42)
[2021-11-27] MEDS ORDERED: Famotidine 20 MG Tab PO ONE (21:00)
[2021-11-28] MEDS: Enoxaparin 30 MG/0.3 ML Syringe SUBCUT SCH (08:49)
[2021-11-28] MEDS: Dexamethasone 6 MG TABLET PO SCH (08:49)
[2021-11-28] MEDS: Tamsulosin 0.4 MG Cap.ER PO SCH (08:49)
[2021-11-28] MEDS: Insulin Lispro 100 Units/ML 3 ML Vial SUBCUT SCH ×3 (08:49→17:12)
[2021-11-28] MEDS ORDERED: Famotidine 20 MG Tab PO SCH (09:00)
[2021-11-28 09:58] LABS: ANION GAP 13.5 mEq/L (7-13)
[2021-11-28] MEDS: REMDESIVIR 100 MG in Sodium Chloride 0.9% 100 ML IV SCH (17:41)
[2021-11-29 07:27] LABS: ANION GAP 13.9 mEq/L (7-13)
[2021-11-29] MEDS: Famotidine 20 MG Tab PO SCH (08:56)
[2021-11-29] MEDS: Enoxaparin 30 MG/0.3 ML Syringe SUBCUT SCH (08:56)
[2021-11-29] MEDS: Insulin Lispro 100 Units/ML 3 ML Vial SUBCUT SCH ×3 (08:57→17:16)
[2021-11-29] MEDS: Dexamethasone 6 MG TABLET PO SCH (08:57)
[2021-11-29] MEDS: Tamsulosin 0.4 MG Cap.ER PO SCH (08:57)
[2021-11-29] MEDS: REMDESIVIR 100 MG in Sodium Chloride 0.9% 100 ML IV SCH (18:06)
[2021-11-29] MEDS: Sodium Chloride 0.9% 10 ML Syringe FLUSH PRN (20:23)
[2021-11-29] MEDS ORDERED: Melatonin 3 MG Tab PO PRN (22:11)
[2021-11-30 07:05] LABS: ANION GAP 12.8 mEq/L (7-13)
[2021-11-30] MEDS: Tamsulosin 0.4 MG Cap.ER PO SCH (08:26)
[2021-11-30] MEDS: Famotidine 20 MG Tab PO SCH (08:26)
[2021-11-30] MEDS: Dexamethasone 6 MG TABLET PO SCH (08:26)
[2021-11-30] MEDS: Enoxaparin 30 MG/0.3 ML Syringe SUBCUT SCH (08:27)
[2021-11-30] MEDS: Insulin Lispro 100 Units/ML 3 ML Vial SUBCUT SCH ×3 (08:29→17:28)
[2021-11-30] MEDS: Levofloxacin/Dextrose 5%-Water 500 MG in Premix Bag 1 BAG IV SCH (12:51)
[2021-11-30] MEDS: Sodium Chloride 0.9% 10 ML Syringe FLUSH PRN (14:23)
[2021-11-30] MEDS: REMDESIVIR 100 MG in Sodium Chloride 0.9% 100 ML IV SCH (17:17)
[2021-12-01] MEDS: Dexamethasone 6 MG TABLET PO SCH (08:39)
[2021-12-01] MEDS: Famotidine 20 MG Tab PO SCH (08:39)
[2021-12-01] MEDS: Tamsulosin 0.4 MG Cap.ER PO SCH (08:39)
[2021-12-01] MEDS: Enoxaparin 30 MG/0.3 ML Syringe SUBCUT SCH (08:39)
[2021-12-01] MEDS: Insulin Lispro 100 Units/ML 3 ML Vial SUBCUT SCH (08:41)
[2021-12-01 09:40] LABS: O2 DELIVERY DEVICE NASAL CANNULA
[2021-12-01 09:44] LABS: PCO2 ARTERIAL 28 mmHg (35-45)
[2021-12-01 09:45] LABS: ALLEN TEST PERFORMED; BASE EXCESS ARTERIAL -4 mmol/L ((-2)-(+3)); O2 SATURATION ARTERIAL 92 % (95-100); PO2 ARTERIAL 63 mmHg (70-100)
[2021-12-01] MEDS ORDERED: Iopamidol 755 Mg/ML 100 ML Bottle IVPUSH ONE (13:14)
[2021-12-01] MEDS: Levofloxacin/Dextrose 5%-Water 500 MG in Premix Bag 1 BAG IV SCH (13:46)
[2021-12-01] MEDS: REMDESIVIR 100 MG in Sodium Chloride 0.9% 100 ML IV SCH (17:34)
[2021-12-02] MEDS: Tamsulosin 0.4 MG Cap.ER PO SCH (08:50)
[2021-12-02] MEDS: Famotidine 20 MG Tab PO SCH (08:50)
[2021-12-02] MEDS: Enoxaparin 30 MG/0.3 ML Syringe SUBCUT SCH (08:50)
[2021-12-02] MEDS: Dexamethasone 6 MG TABLET PO SCH (08:50)
[2021-12-02] MEDS: Levofloxacin/Dextrose 5%-Water 500 MG in Premix Bag 1 BAG IV SCH (12:33)
[2021-12-02] MEDS: Sodium Chloride 0.9% 10 ML Syringe FLUSH PRN ×2 (22:26→22:27)
[2021-12-03] MEDS: Famotidine 20 MG Tab PO SCH (08:31)
[2021-12-03] MEDS: Enoxaparin 30 MG/0.3 ML Syringe SUBCUT SCH (08:32)
[2021-12-03] MEDS: Dexamethasone 6 MG TABLET PO SCH (08:32)
[2021-12-03] MEDS: Tamsulosin 0.4 MG Cap.ER PO SCH (08:32)
[2021-12-03] MEDS ORDERED: amLODIPine 5 MG Tab PO SCH (09:00)
[2021-12-03] MEDS: Levofloxacin/Dextrose 5%-Water 500 MG in Premix Bag 1 BAG IV SCH (12:40)
== END 2021-12-03 18:10 | disposition home or self-care (01) | DRG 682 ==
LOC: DL.ED 13:49 → DL.MS 17:31
PROVIDERS: ADMIT Internal Medicine; ATTEND Internal Medicine
PROC: 8E0ZXY6 Isolation (ICD-10-PCS; principal; 2021-11-27)
PROC: 3E0333Z Introduction of Anti-inflammatory into Peripheral Vein, Percutaneous Approach (ICD-10-PCS; 2021-11-27)
PROC: XW033E5 Introduction of Remdesivir Anti-infective into Peripheral Vein, Percutaneous Approach, New Technology Group 5 (ICD-10-PCS; 2021-11-27)
DX: N17.9 Acute kidney failure, unspecified (principal); U07.1 COVID-19; E87.1 Hypo-osmolality and hyponatremia; E87.3 Alkalosis; R09.02 Hypoxemia; E86.0 Dehydration; R53.1 Weakness; W19.XXXA Unspecified fall, initial encounter; D69.6 Thrombocytopenia, unspecified; R00.1 Bradycardia, unspecified; J44.9 Chronic obstructive pulmonary disease, unspecified; N40.0 Benign prostatic hyperplasia without lower urinary tract symptoms; Z91.81 History of falling; F17.210 Nicotine dependence, cigarettes, uncomplicated; I25.10 Atherosclerotic heart disease of native coronary artery without angina pectoris; Z79.1 Long term (current) use of non-steroidal anti-inflammatories (NSAID); Z86.79 Personal history of other diseases of the circulatory system; Z90.89 Acquired absence of other organs; Z98.890 Other specified postprocedural states; Z94.7 Corneal transplant status; Z79.82 Long term (current) use of aspirin; Z79.899 Other long term (current) drug therapy
CPT/HCPCS: 0241U; 36415; 36600; 71250; 71260; 80048; 80053; 80305-QW; 80307; 81001; 82248; 82306; 82550; 82728; 82803; 82947; 83605; 83615; 83735; 83880; 84439; 84443; 84484; 85025; 85379; 85610; 85730; 86140; 87040; 87070; 87077; 87186; 87205; 93005; 93010; 96360; 97110-GP; 97116-GP; 97161-GP; 97165-GO; 97530-GO; 99223; 99232; 99239; 99284; 99285-25; A9270-GY; J1650; J1956; J3490; J7030; J7050; J7620-GY; J8540; Q9967